=== PATIENT | female | born 1955 | race Caucasian/White ===

== ENCOUNTER 2016-10-10 14:28 | Inpatient (IN) ==
[2016-10-10] MEDS ORDERED: Naloxone 0.4 MG/ML INJ IVP PRN (17:44)
[2016-10-10] MEDS ORDERED: Albuterol 2.5 MG/3 ML NEBULIZER IH PRN (17:49)
[2016-10-10] MEDS ORDERED: 0.9 % Sodium Chloride 1,000 ML IVC ONE (17:52)
[2016-10-10] MEDS ORDERED: Potassium Chloride 40 MEQ, Lidocaine 1% 2 ML in D5% in Water 500 ML IVPB ONE (17:53)
[2016-10-10] MEDS ORDERED: Dextrose Gel 15 GM PO PRN ×2 (17:56)
[2016-10-10] MEDS ORDERED: *HR* Dextrose 50 % in Water (Syg) 50 ML SYRINGE IVP PRN (17:56)
[2016-10-10] MEDS ORDERED: D5% in Water 1,000 ML IV PRN (17:56)
--- NOTE | 2016-10-10 17:57 | Internal Med History&Physical ---
<Shannan Lamb M - Last Filed: 10/10/16 23:54> Date of Encounter: 10/10/16 Time of Encounter: 17:55 Assessment and Plan (1) Community acquired pneumonia Current visit: No Status: Acute Patient with complaints of pain in left shoulder when taking a deep breath, weakness and lethargy. Satting 88% on room air. CTA revealed left upper lobe pneumonia. WBC 25 Blood cultures drawn by Raven Cutler, await results Azithromycin and Ceftriaxone IVPB IV fluids 100mL/hr titrate oxygen to maintain O2 saturations > 92% duonebs QID albuterol nebulizer Q2 PRN (2) Type 2 diabetes mellitus Current visit: Yes Status: Acute diabetic diet check blood sugars ACHS Continue basal dose of insulin 35u levemir BID Sliding scale correction dose ACHS hypoglycemic protocol. 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 Discussed consequences of smoking and smoking cessation. Patient not ready to quit at this time. Nicotine patch ordered. (4) Hypokalemia Current visit: Yes Status: Acute Potassium of 3.3. 40mEq of potassium IVPB ordered recheck chemistry in the morning. (5) Dehydration Current visit: Yes Status: Acute Patient appears dry with dry mucous membranes. 1L fluid bolus ordered. IV fluids 0.9 at 100mL/hr. (6) DVT prophylaxis Current visit: Yes Status: Acute Internal Medicine - H&P: HPI Chief complaint: weakness, lethargic Admitted From: Emergency Dept Plans for Post Hospital Care: Home History of present illness: Ms. Sinclair is a 61 year old female with hypertension, hyperlipidemia, type 2 diabetes, fibromyalgia, peripheral vascular disease who is admitted in a transfer from [facility] emergency room with pneumonia. Patient reports that over the last several days she has had trouble controlling her blood sugar, and had weakness and lethargy. Yesterday she developed pain in her left shoulder when taking a deep breath which continued to today. She denies any cough, fever, chills, sweats. She denies any nausea, vomiting, diarrhea, abdominal pain. She denies any dizziness, lightheadedness, numbness or tingling outside of her baseline bilateral lower extremity diabetic neuropathy. She presented to her primary care provider this morning with these complaints and he sent her to the emergency room. Presentation to [facility] emergency room she was satting 88% on 2 L. Evaluation was significant for white blood cell count of 25, hypokalemia with potassium of 3.3, hyponatremia with sodium of 131. CTA of the chest was performed which showed a left upper lobe infiltrate consistent with pneumonia and several nodules. On exam, mucous membranes appear dry, she is alert and oriented, in no distress. Lungs are mostly clear to auscultation, with mild crackle in left superior. Past Med Surg Social Fam HX - Past Medical History Medical history: coronary artery disease, diabetes, fibromyalgia, hyperlipidemia , hypertension, peripheral artery disease Psychiatric history: no psych history - Past Surgical History Surgical History: hysterectomy, LE vascular intervention - Social History Smoking Status: Current every day smoker (1PPD) Packs per day: 1 Alcohol use: none Drug use: none - Family History Mother Living Status: Age at : 79 Cause of : heart failure Father Living Status: Age at : 82 Cause of : Cancer Internal Medicine - H&P: Meds Albuterol Sulfate [Ventolin Hfa] 2 puff IH QID PRN 10/10/16 [History] Aspirin [Lo-Dose Aspirin EC] 81 mg PO DAILY 10/10/16 [History] Atorvastatin [Lipitor] 40 mg PO HS 10/10/16 [History] Clopidogrel Bisulfate [Plavix] 75 mg PO DAILY 10/10/16 [History] Cyclobenzaprine HCl [Cyclobenzaprine HCl] 5 - 10 mg PO HS 10/10/16 [History] Gabapentin [Neurontin] 100 mg PO HS 10/10/16 [History] Insulin ASPART [Novolog Flexpen] 10 unit SQ TIDWM 10/10/16 [History] Insulin Glargine [Lantus] 35 unit SQ BID 10/10/16 [History] Lidocaine Patch [Lidoderm 5% patch] 1 each TP DAILY PRN 10/10/16 [History] Liraglutide [Victoza 2-Trey] 1.2 mg SQ DAILY 10/10/16 [History] Naproxen [Naprosyn] 500 mg PO BID PRN 10/10/16 [History] Nitroglycerin [Nitrostat] 0.4 mg SL Q5M PRN 10/10/16 [History] Oxycodone HCl/Acetaminophen [Percocet 10-325 mg Tablet] 1 each PO Q8H PRN [History] Quetiapine Fumarate [Seroquel] 100 mg PO HS 10/10/16 [History] Sertraline [Zoloft] 50 - 100 mg PO DAILY 10/10/16 [History] Allergies codeine Allergy (Verified 10/10/16 10:02) See Comments All Systems PM: A 10-system review of systems was performed and is negative for pertinent findings except as documented above in the HPI. - Constitutional Constitutional: fatigue, lethargy, weakness, no chills, no fever(s), no night sweats - EENT Eyes: no change in vision, no discharge, no pain, no photophobia Ears: no ear discharge, no ear pain, no tinnitus Nose, mouth and throat: no dysphagia, no nasal discharge, no neck pain, no sore throat - Cardiovascular Cardiovascular ROS IM: no chest pain, no diaphoresis, no dyspnea, no lightheadedness, no palpitations, no syncope - Respiratory Respiratory: pain on inspiration, no cough, no dyspnea, no wheezing, no excessive phlegm production - Gastrointestinal Gastrointestinal: constipation, no abdominal pain, no diarrhea, no hematemesis, no hematochezia, no melena, no nausea, no vomiting - Genitourinary Genitourinary: no change in urinary stream, no dysuria, no flank pain, no hematuria - Musculoskeletal Musculoskeletal ROS IM: no numbness, no tingling - Integumentary Integumentary IM: no rash, no unusual bruising - Neurological Neurological ROS: no confusion, no convulsions, no focal weakness, no numbness, no tingling, no tremor(s) - Hematologic/Lymphatic Hematologic/Lymphatic: no easy bruising - Constitutional Vitals: Temp Pulse Resp BP Pulse Ox 98.2 F 97 16 100/66 95 10/10/16 16:41 10/10/16 16:41 10/10/16 16:41 10/10/16 16:41 10/10/16 16:41 General appearance: Present: A&O X 3, no acute distress - Head Head exam: Present: atraumatic, normocephalic - Eye Eye exam: Present: PERRL, conjuntiva pink, sclera anicteric Pupils: Present: PERRL - Neck Neck exam general surgery: Present: supple, trachea midline. Absent: lymphadenopathy - Respiratory Respiratory exam: Present: rales (left upper lobe). Absent: accessory muscle use, rhonchi, wheezes - Cardiovascular Cardiovascular exam: Present: RRR, +S1, +S2. Absent: diastolic murmur, gallop, rubs, systolic murmur - GI/Abdominal GI/Abdominal exam: Present: normal bowel sounds, soft, no peritoneal signs. Absent: distended, tenderness - Extremities Exam Extremities exam: Present: warm, radial pulses palpable and symetrical. Absent : calf tenderness, cyanotic, pedal edema - Neurological Exam Neurological exam: Present: CN II-XII intact, oriented X3, no focal deficits. Absent: pronater drift, facial droop, speech deficit - Skin Skin exam: Present: dry, intact Internal Med - H&P Results - Labs Labs: Labs from [facility] ED: WBC 25 Hgb 11.0 Hct 30.5 PlT 295 NA 131 K 3.3 CL 96 Co2 21 BUN 18 Cr 0.87 Glu 100 <Robert Conklin - Last Filed: 10/13/16 13:31> Internal Medicine - H&P: HPI History of present illness: Ms. Sinclair is a 61 year old female All Systems PM: A 10-system review of systems was performed and is negative for pertinent findings except as documented above in the HPI. - Constitutional Vitals: Temp Pulse Resp BP Pulse Ox 98.2 F 105 16 143/77 98 10/13/16 11:01 10/13/16 11:01 10/13/16 11:01 10/13/16 11:01 10/13/16 11:01 Internal Med - H&P Results - Labs CBC & Chem 7: 10/13/16 06:30 10/13/16 06:30 Labs: Short CBC 10/13/16 Range/Units 06:30 WBC 9.3 (4.3-11.1) K/mcL Hgb 9.4 L (11.5-15.4) g/dL Hct 28.8 L (35.3-44.9) % Plt Count 313 (140-400) K/mcL Neutrophils # 5.0 (1.6-8.9) K/mcL BMP 10/13/16 06:30 Sodium 140 Potassium 3.8 Chloride 108 Carbon Dioxide 26 BUN 18 Creatinine 0.66 Glucose 100 H Calcium 8.0 L Liver Function 10/13/16 Range/Units 06:30 Total Bilirubin 0.4 (0.2-1.2) mg/dL AST 26 (5-34) Units/L ALT 14 (0-55) Units/L Alkaline Phosphatase 141 H (38-126) Units/L Albumin 1.8 L D (3.5-5.0) g/dL - Attending Attestation I examined this patient and my medical decision-making was reviewed with the Advanced Practice Nurse. I agree with the documented findings, disposition and treatment plan as described except to the extent set forth below. Pt sent from outside hospital for eval and treatment of PNA and sepsis. On exam NAD, heart RRR S1S2. Will treat her with Ceftriaxone and Azithromycin and f/u cultures.
[2016-10-10] MEDS: Insulin LISPRO 300 UNITS/3 ML VIAL SQ SCH ×2 (18:21→21:42)
[2016-10-10] MEDS: Nicotine 21 MG PATCH.TD24 TD SCH (18:23)
[2016-10-10] MEDS: Ipratropium/Albuterol Neb 3 ML IH SCH ×2 (19:01→23:55)
[2016-10-10] MEDS: 0.9 % Sodium Chloride 1,000 ML IVC SCH (19:45)
[2016-10-10 20:24] LABS: Hemoglobin A1C 9.5 %
[2016-10-10] MEDS: Insulin DETEMIR 100 UNIT/ML X5UNITS SQ SCH (21:42)
[2016-10-10] MEDS: *HR* OxyCODONE/APAP 10/325 TABLET PO PRN (21:42)
[2016-10-10] MEDS ORDERED: Nitroglycerin 0.4 MG TAB.SUBL SL PRN (23:41)
[2016-10-11] MEDS: Ipratropium/Albuterol Neb 3 ML IH SCH ×4 (05:04→22:59)
[2016-10-11] MEDS: *HR* Enoxaparin 40 MG/0.4 ML SYRINGE SQ SCH (05:26)
[2016-10-11] MEDS: *HR* OxyCODONE/APAP 10/325 TABLET PO PRN ×2 (05:30→23:18)
[2016-10-11 06:17] LABS: Hematocrit 29.2 % (35.3-44.9); Hemoglobin 9.7 g/dL (11.5-15.4); Mean Corpuscular HGB Conc 33.2 g/dL (31.6-35.5); Mean Corpuscular Hemoglobin 28.2 pg (28.0-33.3); Mean Corpuscular Volume 84.9 fL (83.0-100.0); Mean Platelet Volume 10.1 fL (9.4-12.4); Platelet Count 276 K/mcL (140-400); Red Blood Count 3.44 M/mcL (3.82-4.97); Red Cell Distribution Width 13.6 % (11.5-14.5)
--- NOTE | 2016-10-11 06:24 | Event Note ---
Date of Encounter: 10/11/16 Time of Encounter: 06:22 I was notified that blood culture is positive for Streptococcus pneumonia. Patient is on ceftriaxone and azithromycin. Normal need to change antibiotics and time. Await sensitivities. Day team to review.
[2016-10-11 06:30] LABS: BUN/Creatinine Ratio 22 (6-26); Blood Urea Nitrogen 17 mg/dL (7-20); Carbon Dioxide 22 mEq/L (19-29); Chloride 105 mEq/L (98-109); Glucose 235 mg/dL (70-99); Osmolality,Calculated 291 (280-300); Potassium 3.9 mEq/L (3.5-4.5); Sodium 136 mEq/L (136-145); eGFR For African Americans > 60 (> 60); eGFR For Non-African Americans > 60 (> 60)
[2016-10-11 07:17] LABS: Monocytes # 0.3 K/mcL (0.0-1.3); Neutrophils # 14.7 K/mcL (1.6-8.9); Platelet Estimate Normal (Normal)
[2016-10-11] MEDS: Nicotine 21 MG PATCH.TD24 TD SCH (07:59)
[2016-10-11] MEDS: Gabapentin 100 MG CAPSULE PO SCH (07:59)
[2016-10-11] MEDS: Aspirin Enteric Coated 81 MG Tablet PO SCH (07:59)
[2016-10-11] MEDS: Insulin DETEMIR 100 UNIT/ML X5UNITS SQ SCH ×2 (07:59→21:14)
[2016-10-11] MEDS: Insulin LISPRO 300 UNITS/3 ML VIAL SQ SCH ×6 (08:00→21:13)
[2016-10-11] MEDS: 0.9 % Sodium Chloride 1,000 ML IVC SCH (08:01)
[2016-10-11] MEDS: Azithromycin 500 MG in D5% in Water 250 ML IVPB SCH (08:01)
--- NOTE | 2016-10-11 09:52 | Internal Med Progress Note ---
<Santosh Wall - Last Filed: 10/11/16 09:49> Date of Encounter: 10/11/16 Time of Encounter: 09:50 - Assessment and plan (1) Community acquired pneumonia Current Visit: Yes Status: Acute Assessment and plan: 61-year-old female with a history of coronary artery disease, diabetes, fibromyalgia, hyperlipidemia, hypertension, peripheral artery disease, chronic smoker presents with complaints of left upper chest pain that worsens with cough and deep inspiration, lethargy and weakness. She was a transfer from [facility] where she presented with saturation 88% on 2 L oxygen. Blood cultures grew streptococcal pneumonia CTA showed left upper lobe consolidation most likely pneumonia White count improving from 25 down to 16 Patient will continue azithromycin and ceftriaxone CBC and BMP in the morning (2) CAD (coronary artery disease) Current Visit: Yes Status: Acute Assessment and plan: Patient has history of coronary artery disease and peripheral vascular disease. She denies any chest pain, leg cramps. We will continue her Plavix, aspirin, statin. Qualifiers: Coronary Disease-Associated Artery/Lesion type: [place] artery [place] vs. transplanted heart: [place] heart Associated angina: without angina Qualified Code(s): I25.10 - Atherosclerotic heart disease of [place] coronary artery without angina pectoris (3) Dehydration Current Visit: Yes Status: Resolved Assessment and plan: Secondary to hyperglycemia secondary to type 2 diabetes uncontrolled. Also secondary to decreased oral intake. Urinalysis showed urine specific gravity of 1.030. Patient receiving IV fluids. Hyponatremia and hypokalemia resolved. (4) Hypokalemia Current Visit: Yes Status: Resolved Assessment and plan: Patient presented with hypokalemia. This has resolved now. We will continue monitoring. (5) Smoker Current Visit: Yes Status: Chronic Assessment and plan: Patient has smoked for 45 years 1 pack per day. She knows benefits of quitting smoking. Patient had quit in the past for 13 months. She would like to try quitting again. Upon discharge will start patient on nicotine patch and gum. She can follow-up with her PCP for further assistance. (6) Type 2 diabetes mellitus Current Visit: Yes Status: Chronic Assessment and plan: Patient says for the past few days she has had trouble controlling her blood sugars. This is most likely secondary to pneumonia. Hemoglobin A1c is 9.5. [place] ER note says patient's blood sugars were in the 500s. She was lethargic Patient takes Victoza and insulin glargine and insulin support at home to control her diabetes. Currently she is on insulin Levemir 20 units twice a day. Continue insulin sliding scale. 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 - Subjective Interval history: 61-year-old female admitted for Streptococcus pneumonia community-acquired pneumonia. This morning patient states that her shortness of breath has improved. She continues to have left upper chest pain worsens with cough and deep inspiration. She denies productive cough, abdominal pain, palpitations, nausea, difficulty urinating. - Constitutional Vitals: Temp Pulse Resp BP Pulse Ox 98.1 F 89 13 105/65 96 10/11/16 06:42 10/11/16 06:42 10/11/16 06:42 10/11/16 06:42 10/11/16 08:12 General appearance: Present: A&O X 3, no acute distress, answers questions appropriately - Neck Neck exam general surgery: Present: supple, trachea midline. Absent: lymphadenopathy - Respiratory Respiratory exam: Present: CTAB, rales (Left upper lung field). Absent: accessory muscle use, rhonchi, wheezes - Cardiovascular Cardiovascular exam: Present: RRR, +S1, +S2. Absent: diastolic murmur, gallop, rubs, systolic murmur - GI/Abdominal GI/Abdominal exam: Present: normal bowel sounds, soft, no peritoneal signs. Absent: distended, tenderness - Extremities Exam Extremities exam: Present: warm, radial pulses palpable and symetrical. Absent : calf tenderness, cyanotic, pedal edema Internal Medicine: Result - Labs CBC & Chem 7: 10/11/16 05:40 10/11/16 05:40 Labs: Short CBC 10/11/16 Range/Units 05:40 WBC 16.0 H (4.3-11.1) K/mcL Hgb 9.7 L (11.5-15.4) g/dL Hct 29.2 L (35.3-44.9) % Plt Count 276 (140-400) K/mcL Neutrophils # 14.7 H (1.6-8.9) K/mcL [facility] 10/11/16 05:40 Sodium 136 Potassium 3.9 Chloride 105 Carbon Dioxide 22 BUN 17 Creatinine 0.78 Glucose 235 H Calcium 8.0 L Consult Discharge Plan - Plan Referrals: Chetan Cabrera MD [Primary Care Provider] - 10/22/16 1:00 pm (Please follow up as schedule.. with the SENIOR DYNAMICS CRM DEVELOPER Eneida) <Milton Duran T - Last Filed: 10/11/16 12:04> - Constitutional Vitals: Temp Pulse Resp BP Pulse Ox 98.4 F 92 16 109/66 97 10/11/16 10:34 10/11/16 10:34 10/11/16 11:03 10/11/16 10:34 10/11/16 11:03 Internal Medicine: Result - Labs CBC & Chem 7: 10/11/16 05:40 10/11/16 05:40 Labs: Short CBC 10/11/16 Range/Units 05:40 WBC 16.0 H (4.3-11.1) K/mcL Hgb 9.7 L (11.5-15.4) g/dL Hct 29.2 L (35.3-44.9) % Plt Count 276 (140-400) K/mcL Neutrophils # 14.7 H (1.6-8.9) K/mcL [facility] 10/11/16 05:40 Sodium 136 Potassium 3.9 Chloride 105 Carbon Dioxide 22 BUN 17 Creatinine 0.78 Glucose 235 H Calcium 8.0 L - Attending Attestation I examined this patient and my medical decision-making was reviewed with the LEVEL DESIGNER/PA/Advanced Practice Nurse/Resident Physician. I agree with the documented findings, disposition and treatment plan as described except to the extent set forth below. 61 Y/O F with PMH of DM, Former smoker, HTN, CAD, Fibromyalgia, PAD Patient is placed on observation for management of community acquired streptococcal pneumonia Seen at bedside, denies new complains, Afebrile, ambulatory, tolerating orally, not in any form of distress Labs and Imaging reviewed :leukocytosis has improved, Chest CT with Pulm nodules and MAE pneumonia. Blood culture with GPC, PCR Strep Continue IV antibiotics, adjust insulin, await final sensitivity, continue home meds, d/c IVF
[2016-10-12] MEDS: Ipratropium/Albuterol Neb 3 ML IH SCH ×4 (05:14→23:15)
[2016-10-12] MEDS: Insulin LISPRO 300 UNITS/3 ML VIAL SQ SCH ×7 (06:48→20:57)
[2016-10-12] MEDS: Insulin DETEMIR 100 UNIT/ML X5UNITS SQ SCH ×2 (06:48→21:07)
[2016-10-12 06:53] LABS: BUN/Creatinine Ratio 27 (6-26); Blood Urea Nitrogen 21 mg/dL (7-20); Calcium 7.9 mg/dL (8.6-10.8); Carbon Dioxide 24 mEq/L (19-29); Chloride 108 mEq/L (98-109); Glucose 50 mg/dL (70-99); Osmolality,Calculated 292 (280-300); Potassium 3.3 mEq/L (3.5-4.5); Sodium 141 mEq/L (136-145); eGFR For African Americans > 60 (> 60); eGFR For Non-African Americans > 60 (> 60)
[2016-10-12 07:04] LABS: Basophils % 0.2 %; Eosinophils % 0.2 %; Hemoglobin 9.2 g/dL (11.5-15.4); Immature Granulocytes % 1.2 % (0-4); Lymphocytes # 3.9 K/mcL (0.6-4.6); Lymphocytes % 29.3 %; Mean Corpuscular HGB Conc 32.9 g/dL (31.6-35.5); Mean Corpuscular Hemoglobin 28.1 pg (28.0-33.3); Mean Corpuscular Volume 85.6 fL (83.0-100.0); Mean Platelet Volume 9.4 fL (9.4-12.4); Monocytes # 0.8 K/mcL (0.0-1.3); Monocytes % 6.2 %; Neutrophils # 8.4 K/mcL (1.6-8.9); Platelet Count 311 K/mcL (140-400); Red Blood Count 3.27 M/mcL (3.82-4.97); Segmented Neutrophils % 62.9 %
[2016-10-12] MEDS: Gabapentin 100 MG CAPSULE PO SCH (07:57)
[2016-10-12] MEDS: Aspirin Enteric Coated 81 MG Tablet PO SCH (07:57)
[2016-10-12] MEDS: *HR* Enoxaparin 40 MG/0.4 ML SYRINGE SQ SCH (07:57)
[2016-10-12] MEDS: Nicotine 21 MG PATCH.TD24 TD SCH (07:57)
[2016-10-12] MEDS: Azithromycin 500 MG in D5% in Water 250 ML IVPB SCH (09:01)
[2016-10-12] MEDS: *HR* OxyCODONE/APAP 10/325 TABLET PO PRN ×2 (13:31→21:06)
--- NOTE | 2016-10-12 16:49 | Internal Med Progress Note ---
Date of Encounter: 10/12/16 Time of Encounter: 16:44 - Assessment and plan (1) Community acquired pneumonia Current Visit: Yes Status: Acute Assessment and plan: 61-year-old female with a history of coronary artery disease, diabetes, fibromyalgia, hyperlipidemia, hypertension, peripheral artery disease, chronic smoker presents with complaints of left upper chest pain that worsens with cough and deep inspiration, lethargy and weakness. She was a transfer from [facility] where she presented with saturation 88% on 2 L oxygen. Blood cultures grew streptococcal pneumonia CTA showed left upper lobe consolidation most likely pneumonia White count improving from 25 down to 16 Patient will continue azithromycin and ceftriaxone CBC and BMP in the morning 10/12/2016 Strep Pneumo bacteremia source : Left upper lobe PNA Day 3 Ceftraxone and Azithromycin plan will d/c Azithromycin tomorrow cont ceftriaxone (2) CAD (coronary artery disease) Current Visit: Yes Status: Acute Assessment and plan: Patient has history of coronary artery disease and peripheral vascular disease. She denies any chest pain, leg cramps. We will continue her Plavix, aspirin, statin. 10/12/2016 no chest pain or SOB stable CAD Qualifiers: Coronary Disease-Associated Artery/Lesion type: [place] artery [place] vs. transplanted heart: [place] heart Associated angina: without angina Qualified Code(s): I25.10 - Atherosclerotic heart disease of [place] coronary artery without angina pectoris (3) Hypokalemia Current Visit: Yes Status: Resolved Assessment and plan: Patient presented with hypokalemia. This has resolved now. We will continue monitoring. 10/12/2016 K : 3.3 will replace K and will check Mg (4) Type 2 diabetes mellitus Current Visit: Yes Status: Chronic Assessment and plan: Patient says for the past few days she has had trouble controlling her blood sugars. This is most likely secondary to pneumonia. Hemoglobin A1c is 9.5. [place] ER note says patient's blood sugars were in the 500s. She was lethargic Patient takes Victoza and insulin glargine and insulin support at home to control her diabetes. Currently she is on insulin Levemir 20 units twice a day. Continue insulin sliding scale. Continue diabetic diet 10/12/2016 acceptable limits Qualifiers: Diabetes mellitus complication status: with neurologic complications Diabetes mellitus complication detail: with polyneuropathy Diabetes mellitus terminal operator insulin use: with terminal operator use Qualified Code(s): E11.42 - Type 2 diabetes mellitus with diabetic polyneuropathy; Z79.4 - medical terminologist (current) use of insulin (5) DVT prophylaxis Current Visit: Yes Status: Acute Assessment and plan: Continue Lovenox. - Subjective Interval history: seen and examined no new complaints eating well has occasional cough and SOB - Constitutional Vitals: Temp Pulse Resp BP Pulse Ox 97.8 F 104 16 136/72 96 10/12/16 10:38 10/12/16 10:38 10/12/16 10:47 10/12/16 10:38 10/12/16 11:30 General appearance: Present: A&O X 3, no acute distress, answers questions appropriately - Head Head exam: Present: atraumatic, normocephalic - Eye Eye exam: Present: PERRL, conjuntiva pink, sclera anicteric Pupils: Present: PERRL - Neck Neck exam general surgery: Present: supple, trachea midline. Absent: lymphadenopathy - Respiratory Respiratory exam: Present: CTAB. Absent: accessory muscle use, rales, rhonchi, wheezes - Cardiovascular Cardiovascular exam: Present: RRR, +S1, +S2. Absent: diastolic murmur, gallop, rubs, systolic murmur - GI/Abdominal GI/Abdominal exam: Present: normal bowel sounds, soft, no peritoneal signs. Absent: distended, tenderness - Extremities Exam Extremities exam: Present: warm, radial pulses palpable and symetrical. Absent : calf tenderness, cyanotic, pedal edema - Neurological Exam Neurological exam: Present: CN II-XII intact, oriented X3, no focal deficits. Absent: pronater drift, facial droop, speech deficit - Skin Skin exam: Present: dry, intact Internal Medicine: Result - Labs CBC & Chem 7: 10/12/16 05:28 10/12/16 05:28 Labs: Short CBC 10/12/16 Range/Units 05:28 WBC 13.3 H (4.3-11.1) K/mcL Hgb 9.2 L (11.5-15.4) g/dL Hct 28.0 L (35.3-44.9) % Plt Count 311 (140-400) K/mcL Neutrophils # 8.4 (1.6-8.9) K/mcL BMP 10/12/16 05:28 Sodium 141 Potassium 3.3 L Chloride 108 Carbon Dioxide 24 BUN 21 H Creatinine 0.78 Glucose 50 L Calcium 7.9 L Consult Discharge Plan - Plan Referrals: Chetan Cabrera MD [Primary Care Provider] - 10/22/16 1:00 pm (Please follow up as schedule.. with the GRAIN MILL WORKER Eneida)
[2016-10-12] MEDS ORDERED: Potassium Chloride Elixir 20 MEQ/15 ML UDC PO ONE (16:51)
[2016-10-13] MEDS: Ipratropium/Albuterol Neb 3 ML IH SCH ×4 (04:39→22:14)
[2016-10-13] MEDS: *HR* Enoxaparin 40 MG/0.4 ML SYRINGE SQ SCH (06:22)
[2016-10-13 07:00] LABS: Alanine Aminotransferase 14 Units/L (0-55); Albumin/Globulin Ratio 0.4 (1.1-2.2); Alkaline Phosphatase 141 Units/L (38-126); Aspartate Amino Transferase 26 Units/L (5-34); BUN/Creatinine Ratio 27 (6-26); Bilirubin,Total 0.4 mg/dL (0.2-1.2); Blood Urea Nitrogen 18 mg/dL (7-20); Carbon Dioxide 26 mEq/L (19-29); Chloride 108 mEq/L (98-109); Globulin 4.7 g/dL (2.4-3.5); Glucose 100 mg/dL (70-99); Magnesium 1.3 mg/dL (1.6-2.6); Osmolality,Calculated 292 (280-300); Potassium 3.8 mEq/L (3.5-4.5); Sodium 140 mEq/L (136-145); Total Protein 6.5 g/dL (6.0-8.3); eGFR For African Americans > 60 (> 60); eGFR For Non-African Americans > 60 (> 60)
[2016-10-13 07:01] LABS: Albumin 1.8 g/dL (3.5-5.0)
[2016-10-13 07:04] LABS: Basophils % 0.3 %; Eosinophils # 0.1 K/mcL (0.0-0.6); Eosinophils % 1.2 %; Hematocrit 28.8 % (35.3-44.9); Hemoglobin 9.4 g/dL (11.5-15.4); Immature Granulocytes % 1.6 % (0-4); Lymphocytes # 3.2 K/mcL (0.6-4.6); Lymphocytes % 34.6 %; Mean Corpuscular HGB Conc 32.6 g/dL (31.6-35.5); Mean Corpuscular Hemoglobin 28.7 pg (28.0-33.3); Mean Corpuscular Volume 88.1 fL (83.0-100.0); Mean Platelet Volume 8.9 fL (9.4-12.4); Monocytes # 0.8 K/mcL (0.0-1.3); Monocytes % 8.2 %; Nucleated Red Blood Cells 0.2 /100 WBC (0); Platelet Count 313 K/mcL (140-400); Red Blood Count 3.27 M/mcL (3.82-4.97); Red Cell Distribution Width 14.4 % (11.5-14.5); Segmented Neutrophils % 54.1 %
[2016-10-13] MEDS: Insulin DETEMIR 100 UNIT/ML X5UNITS SQ SCH ×2 (08:10→20:56)
[2016-10-13] MEDS: Insulin LISPRO 300 UNITS/3 ML VIAL SQ SCH ×7 (08:10→20:58)
[2016-10-13] MEDS: Gabapentin 100 MG CAPSULE PO SCH (08:48)
[2016-10-13] MEDS: Aspirin Enteric Coated 81 MG Tablet PO SCH (08:48)
[2016-10-13] MEDS: Nicotine 21 MG PATCH.TD24 TD SCH (08:48)
[2016-10-13] MEDS: Azithromycin 500 MG in D5% in Water 250 ML IVPB SCH (09:50)
--- NOTE | 2016-10-13 13:37 | Internal Med Progress Note ---
Date of Encounter: 10/13/16 Time of Encounter: 13:35 - Assessment and plan (1) Community acquired pneumonia Current Visit: Yes Status: Acute Assessment and plan: 61-year-old female with a history of coronary artery disease, diabetes, fibromyalgia, hyperlipidemia, hypertension, peripheral artery disease, chronic smoker presents with complaints of left upper chest pain that worsens with cough and deep inspiration, lethargy and weakness. She was a transfer from [facility] where she presented with saturation 88% on 2 L oxygen. Blood cultures grew streptococcal pneumonia CTA showed left upper lobe consolidation most likely pneumonia White count improving from 25 down to 16 Patient will continue azithromycin and ceftriaxone CBC and BMP in the morning 10/12/2016 Strep Pneumo bacteremia source : Left upper lobe PNA Day 3 Ceftraxone and Azithromycin plan will d/c Azithromycin tomorrow cont ceftriaxone 10/13/2016 Day 4 Ceftriaxone Stre Pneumo Bacteremia. Source: left upper lobe of lung plan will continue ceftriaxone will get ECHO replace Mg (2) CAD (coronary artery disease) Current Visit: Yes Status: Acute Assessment and plan: Patient has history of coronary artery disease and peripheral vascular disease. She denies any chest pain, leg cramps. We will continue her Plavix, aspirin, statin. 10/12/2016 no chest pain or SOB stable CAD Qualifiers: Coronary Disease-Associated Artery/Lesion type: [place] artery [place] vs. transplanted heart: [place] heart Associated angina: without angina Qualified Code(s): I25.10 - Atherosclerotic heart disease of [place] coronary artery without angina pectoris (3) Hypokalemia Current Visit: Yes Status: Resolved Assessment and plan: Patient presented with hypokalemia. This has resolved now. We will continue monitoring. 10/12/2016 K : 3.3 will replace K and will check Mg (4) Type 2 diabetes mellitus Current Visit: Yes Status: Chronic Assessment and plan: Patient says for the past few days she has had trouble controlling her blood sugars. This is most likely secondary to pneumonia. Hemoglobin A1c is 9.5. [place] [facility] note says patient's blood sugars were in the 500s. She was lethargic Patient takes Victoza and insulin glargine and insulin support at home to control her diabetes. Currently she is on insulin Levemir 20 units twice a day. Continue insulin sliding scale. 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 - Subjective Interval history: seen and examined no new complaints eating well has occasional cough and SOB 10/13/2016 occasional cough and SOB eating well and denies nausea, SOB, vomiting. - Constitutional Vitals: Temp Pulse Resp BP Pulse Ox 98.2 F 105 16 143/77 98 10/13/16 11:01 10/13/16 11:01 10/13/16 11:01 10/13/16 11:01 10/13/16 11:01 General appearance: Present: A&O X 3, no acute distress, answers questions appropriately - Head Head exam: Present: atraumatic, normocephalic - Eye Eye exam: Present: PERRL, conjuntiva pink, sclera anicteric Pupils: Present: PERRL - Neck Neck exam general surgery: Present: supple, trachea midline. Absent: lymphadenopathy - Respiratory Respiratory exam: Present: CTAB. Absent: accessory muscle use, rales, rhonchi, wheezes - Cardiovascular Cardiovascular exam: Present: RRR, +S1, +S2. Absent: diastolic murmur, gallop, rubs, systolic murmur - GI/Abdominal GI/Abdominal exam: Present: normal bowel sounds, soft, no peritoneal signs. Absent: distended, tenderness - Extremities Exam Extremities exam: Present: warm, radial pulses palpable and symetrical. Absent : calf tenderness, cyanotic, pedal edema - Neurological Exam Neurological exam: Present: CN II-XII intact, oriented X3, no focal deficits. Absent: pronater drift, facial droop, speech deficit - Skin Skin exam: Present: dry, intact Internal Medicine: Result - Labs CBC & Chem 7: 10/13/16 06:30 10/13/16 06:30 Labs: Short CBC 10/13/16 Range/Units 06:30 WBC 9.3 (4.3-11.1) K/mcL Hgb 9.4 L (11.5-15.4) g/dL Hct 28.8 L (35.3-44.9) % Plt Count 313 (140-400) K/mcL Neutrophils # 5.0 (1.6-8.9) K/mcL BMP 10/13/16 06:30 Sodium 140 Potassium 3.8 Chloride 108 Carbon Dioxide 26 BUN 18 Creatinine 0.66 Glucose 100 H Calcium 8.0 L Liver Function 10/13/16 Range/Units 06:30 Total Bilirubin 0.4 (0.2-1.2) mg/dL AST 26 (5-34) Units/L ALT 14 (0-55) Units/L Alkaline Phosphatase 141 H (38-126) Units/L Albumin 1.8 L D (3.5-5.0) g/dL Consult Discharge Plan - Plan Referrals: Chetan Cabrera MD [Primary Care Provider] - 10/22/16 1:00 pm (Please follow up as schedule.. with the [employer] [facility])
[2016-10-13] MEDS ORDERED: Magnesium Sulfate 2 GM in D5% in Water 100 ML IVPB ONE (13:41)
[2016-10-13] MEDS: *HR* OxyCODONE/APAP 10/325 TABLET PO PRN (20:55)
[2016-10-14] MEDS: Ipratropium/Albuterol Neb 3 ML IH SCH ×4 (04:16→22:54)
[2016-10-14 05:59] LABS: Basophils % 0.4 %; Eosinophils # 0.2 K/mcL (0.0-0.6); Eosinophils % 2.3 %; Hematocrit 30.4 % (35.3-44.9); Immature Granulocytes % 1.7 % (0-4); Immature Platelets 1.2 % (1.1-6.1); Lymphocytes # 3.5 K/mcL (0.6-4.6); Lymphocytes % 35.9 %; Mean Corpuscular HGB Conc 32.9 g/dL (31.6-35.5); Mean Corpuscular Hemoglobin 28.7 pg (28.0-33.3); Mean Corpuscular Volume 87.4 fL (83.0-100.0); Mean Platelet Volume 8.8 fL (9.4-12.4); Monocytes # 0.8 K/mcL (0.0-1.3); Monocytes % 7.7 %; Neutrophils # 5.1 K/mcL (1.6-8.9); Platelet Count 375 K/mcL (140-400); Red Blood Count 3.48 M/mcL (3.82-4.97); Red Cell Distribution Width 14.2 % (11.5-14.5)
[2016-10-14 06:13] LABS: Alanine Aminotransferase 12 Units/L (0-55); Albumin/Globulin Ratio 0.4 (1.1-2.2); Alkaline Phosphatase 133 Units/L (38-126); Aspartate Amino Transferase 17 Units/L (5-34); BUN/Creatinine Ratio 17 (6-26); Bilirubin,Total 0.6 mg/dL (0.2-1.2); Blood Urea Nitrogen 13 mg/dL (7-20); Calcium 7.9 mg/dL (8.6-10.8); Carbon Dioxide 29 mEq/L (19-29); Chloride 104 mEq/L (98-109); Globulin 4.6 g/dL (2.4-3.5); Glucose 256 mg/dL (70-99); Magnesium 1.4 mg/dL (1.6-2.6); Osmolality,Calculated 293 (280-300); Potassium 4.2 mEq/L (3.5-4.5); Sodium 137 mEq/L (136-145); Total Protein 6.5 g/dL (6.0-8.3); eGFR For African Americans > 60 (> 60); eGFR For Non-African Americans > 60 (> 60)
[2016-10-14 06:14] LABS: Albumin 1.9 g/dL (3.5-5.0)
[2016-10-14] MEDS: Gabapentin 100 MG CAPSULE PO SCH (08:39)
[2016-10-14] MEDS: Nicotine 21 MG PATCH.TD24 TD SCH (08:39)
[2016-10-14] MEDS: Aspirin Enteric Coated 81 MG Tablet PO SCH (08:39)
[2016-10-14] MEDS: *HR* Enoxaparin 40 MG/0.4 ML SYRINGE SQ SCH (08:43)
[2016-10-14] MEDS: Insulin LISPRO 300 UNITS/3 ML VIAL SQ SCH ×6 (08:44→16:18)
[2016-10-14] MEDS: Insulin DETEMIR 100 UNIT/ML X5UNITS SQ SCH ×2 (08:55→22:10)
[2016-10-14] MEDS ORDERED: Perflutren Lipid Microsphere 1.3 ML in 0.9 % Sodium Chloride 8.7 ML IVP ONE (10:00)
[2016-10-14] MEDS ORDERED: Magnesium Sulfate 2 GM in D5% in Water 100 ML IVPB ONE (11:30)
--- NOTE | 2016-10-14 13:18 | ECHO - Doppler Report ---
Echo with Imaging Enhancement Agent Name: Gertrudis Sinclair Date of Study: 10/14/2016 Date: 1955 Ht: 65.0 in Medical Record#: [id number] Age: 61 Wt: 180.0 lb Gender: Female BSA: 1.89 Order #: [id number] Location: [facility] Room #: 2A14 Reading Physician: Nehemiah Rivas DO, ROCHELLE, BHARATHI KOTHARI Video Games Mechanic: Pee Fernandez RDCS Ordering Physician: Liban Tony MD Primary Physician: Chetan Cabrera MD Indications: Evaluate for endocarditis, Shortness of breath Impressions: LVEF 35%. Normal LV chamber size and wall thickness. Global left ventricular systolic dysfunction. Mild left ventricular diastolic dysfunction. Normal right ventricular structure and function. Mild mitral regurgitation. Unable to estimate RVSP due to lack of TR jet. No obvious evidence of endocarditis on this study. Repeat or consider EVE as clinically indicated. Left Ventricular Wall Motion: Rest Echo Findings The apex, apical inferior, mid inferior, basal inferior, apical anterior, mid anterior, basal anterior, apical septal, mid inferior septal, basal inferior septal, apical lateral, mid anterior lateral, basal anterior lateral, mid anterior septal, mid inferior lateral, basal anterior septal and basal inferior lateral merchant were hypokinetic. Findings: Study Quality * Technically adequate exam. ECG Findings * Normal sinus rhythm. Left Ventricle * LVEF 35%. * Normal LV chamber size and wall thickness. * Global left ventricular systolic dysfunction. * Mild left ventricular diastolic dysfunction. Right Ventricle * Normal right ventricular structure and function. Left Atrium * Mildly dilated left atrium. Right Atrium * Normal right atrial size. Interatrial Septum * Interatrial septum not well evaluated. Aortic Valve * Trileaflet aortic valve. * Calcified area between the non and left coronary cusps. * No aortic regurgitation. * No aortic stenosis. Mitral Valve * Normal mitral valve structure. * Mild mitral regurgitation. * No mitral stenosis. Tricuspid Valve * Normal tricuspid valve structure and function. * No tricuspid regurgitation. * Unable to estimate RVSP due to lack of TR jet. Pulmonic Valve * Pulmonic valve not well visualized. * No pulmonic regurgitation. Aorta * Normally sized aortic root. Pericardium * The pericardium appears normal. IVC * Normal IVC dimensions and inspiratory collapse. Pulmonary Artery * Normal visualized portions of the main pulmonary artery. History Diabetes Hypercholesteremia History of Smoking Years 45 Packs 1 Family History of CAD Contrast: Definity 1.3 ml in 8.7 ml of saline 2 ml. Measurements: BP: 147/ 80 2D Normal Values RVIDd: 2.73 cm <2.7 cm IVSd: 1.06 cm 0.6 - 1.0 cm LVIDd: 5.40 cm 3.7 - 5.6 cm LVPWd: 1.06 cm 0.6 - 1.1 cm LVIDs: 4.36 cm 1.5 - 3.6 cm AO: 2.70 cm < 4.0 cm LA: 3.70 cm 2.0 - 4.0cm %FS: 19.30 cm >25 % LA volume: 39 Mitral Valve Peak E:1.00 m/sec Peak A:1.26 m/sec E/A Ratio:0.8 Peak E' Lat Frank:8.59 cm/s Peak E' Med Frank:8.59 cm/s E/E' Lat Ratio:11.6 E/E' Med Ratio:11.6 Updated by Nehemiah Rivas DO, FACXavi, BHARATHI KOTHARI on 10/14/2016 1:12:09 PM electronically signed on 10/14/2016 1:14:38 PM with status of Final Wall Motion [place]: 1=Normal, 2=Hypokinesis, 3=Akinesis, 4=Dyskinesis, 5=Aneurysmal, 6=Hyperkinetic, X=Not Visualized (Blank)=Missing
--- NOTE | 2016-10-14 13:45 | Internal Med Progress Note ---
Date of Encounter: 10/14/16 Time of Encounter: 13:41 - Assessment and plan (1) Community acquired pneumonia Current Visit: Yes Status: Acute Assessment and plan: 61-year-old female with a history of coronary artery disease, diabetes, fibromyalgia, hyperlipidemia, hypertension, peripheral artery disease, chronic smoker presents with complaints of left upper chest pain that worsens with cough and deep inspiration, lethargy and weakness. She was a transfer from [facility] where she presented with saturation 88% on 2 L oxygen. Blood cultures grew streptococcal pneumonia CTA showed left upper lobe consolidation most likely pneumonia White count improving from 25 down to 16 Patient will continue azithromycin and ceftriaxone CBC and BMP in the morning 10/12/2016 Strep Pneumo bacteremia source : Left upper lobe PNA Day 3 Ceftraxone and Azithromycin plan will d/c Azithromycin tomorrow cont ceftriaxone 10/13/2016 Day 4 Ceftriaxone Stre Pneumo Bacteremia. Source: left upper lobe of lung plan will continue ceftriaxone will get ECHO replace Mg 10/14/2016 Day 5 Ceftriaxone Strep Pneumo Bacteremia. Source: left upper lobe of lung plan will continue ceftriaxone ( total of 7 days) ECHO pending replace Mg ( this morning 1.4 after yesterday's replacement) (2) CAD (coronary artery disease) Current Visit: Yes Status: Acute Assessment and plan: Patient has history of coronary artery disease and peripheral vascular disease. She denies any chest pain, leg cramps. We will continue her Plavix, aspirin, statin. 10/12/2016 no chest pain or SOB stable CAD Qualifiers: Coronary Disease-Associated Artery/Lesion type: [place] artery [place] vs. transplanted heart: [place] heart Associated angina: without angina Qualified Code(s): I25.10 - Atherosclerotic heart disease of [place] coronary artery without angina pectoris (3) Hypokalemia Current Visit: Yes Status: Resolved Assessment and plan: Patient presented with hypokalemia. This has resolved now. We will continue monitoring. 10/12/2016 K : 3.3 will replace K and will check Mg (4) Type 2 diabetes mellitus Current Visit: Yes Status: Chronic Assessment and plan: Patient says for the past few days she has had trouble controlling her blood sugars. This is most likely secondary to pneumonia. Hemoglobin A1c is 9.5. [place] ER note says patient's blood sugars were in the 500s. She was lethargic Patient takes Victoza and insulin glargine and insulin support at home to control her diabetes. Currently she is on insulin Levemir 20 units twice a day. Continue insulin sliding scale. 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 - Subjective Interval history: seen and examined no new complaints eating well has occasional cough and SOB 10/13/2016 occasional cough and SOB eating well and denies nausea, SOB, vomiting. 10/14/2016 has still cough and occasional chills. denies SOB eating well and ambulating in room. Pending ECHO - Constitutional Vitals: Temp Pulse Resp BP Pulse Ox 98 F 103 17 151/80 100 10/14/16 11:38 10/14/16 11:38 10/14/16 11:38 10/14/16 11:38 10/14/16 11:38 General appearance: Present: A&O X 3, no acute distress, answers questions appropriately - Head Head exam: Present: atraumatic, normocephalic - Eye Eye exam: Present: PERRL, conjuntiva pink, sclera anicteric Pupils: Present: PERRL - Neck Neck exam general surgery: Present: supple, trachea midline. Absent: lymphadenopathy - Respiratory Respiratory exam: Present: CTAB. Absent: accessory muscle use, rales, rhonchi, wheezes - Cardiovascular Cardiovascular exam: Present: RRR, +S1, +S2. Absent: diastolic murmur, gallop, rubs, systolic murmur - GI/Abdominal GI/Abdominal exam: Present: normal bowel sounds, soft, no peritoneal signs. Absent: distended, tenderness - Extremities Exam Extremities exam: Present: warm, radial pulses palpable and symetrical. Absent : calf tenderness, cyanotic, pedal edema - Neurological Exam Neurological exam: Present: CN II-XII intact, oriented X3, no focal deficits. Absent: pronater drift, facial droop, speech deficit - Skin Skin exam: Present: dry, intact Internal Medicine: Result - Labs CBC & Chem 7: 10/14/16 05:40 10/14/16 05:40 Labs: Short CBC 10/14/16 Range/Units 05:40 WBC 9.8 (4.3-11.1) K/mcL Hgb 10.0 L (11.5-15.4) g/dL Hct 30.4 L (35.3-44.9) % Plt Count 375 (140-400) K/mcL Neutrophils # 5.1 (1.6-8.9) K/mcL BMP 10/14/16 05:40 Sodium 137 Potassium 4.2 Chloride 104 Carbon Dioxide 29 BUN 13 Creatinine 0.75 Glucose 256 H Calcium 7.9 L Liver Function 10/14/16 Range/Units 05:40 Total Bilirubin 0.6 (0.2-1.2) mg/dL AST 17 (5-34) Units/L ALT 12 (0-55) Units/L Alkaline Phosphatase 133 H (38-126) Units/L Albumin 1.9 L (3.5-5.0) g/dL Consult Discharge Plan - Plan Referrals: Chetan Cabrera MD [Primary Care Provider] - 10/22/16 1:00 pm (Please follow up as schedule.. with the ROSIE Monique)
[2016-10-14] MEDS: *HR* OxyCODONE/APAP 10/325 TABLET PO PRN (16:21)
[2016-10-15] MEDS: Ipratropium/Albuterol Neb 3 ML IH SCH ×4 (04:40→22:50)
[2016-10-15] MEDS: Insulin LISPRO 300 UNITS/3 ML VIAL SQ SCH ×8 (04:42→21:02)
[2016-10-15 06:46] LABS: Basophils # 0.1 K/mcL (0.0-0.2); Basophils % 0.4 %; Eosinophils # 0.3 K/mcL (0.0-0.6); Eosinophils % 2.3 %; Hemoglobin 11.3 g/dL (11.5-15.4); Immature Granulocytes % 1.6 % (0-4); Lymphocytes # 3.5 K/mcL (0.6-4.6); Lymphocytes % 28.9 %; Mean Corpuscular HGB Conc 32.3 g/dL (31.6-35.5); Mean Corpuscular Hemoglobin 27.8 pg (28.0-33.3); Mean Platelet Volume 8.7 fL (9.4-12.4); Monocytes # 0.8 K/mcL (0.0-1.3); Monocytes % 6.9 %; Neutrophils # 7.2 K/mcL (1.6-8.9); Platelet Count 395 K/mcL (140-400); Red Blood Count 4.07 M/mcL (3.82-4.97); Segmented Neutrophils % 59.9 %
[2016-10-15 07:05] LABS: Alanine Aminotransferase 13 Units/L (0-55); Albumin 2.1 g/dL (3.5-5.0); Albumin/Globulin Ratio 0.4 (1.1-2.2); Alkaline Phosphatase 143 Units/L (38-126); Aspartate Amino Transferase 17 Units/L (5-34); BUN/Creatinine Ratio 17 (6-26); Bilirubin,Total 0.7 mg/dL (0.2-1.2); Blood Urea Nitrogen 13 mg/dL (7-20); Calcium 8.5 mg/dL (8.6-10.8); Carbon Dioxide 26 mEq/L (19-29); Chloride 102 mEq/L (98-109); Globulin 5.4 g/dL (2.4-3.5); Glucose 183 mg/dL (70-99); Osmolality,Calculated 289 (280-300); Potassium 4.1 mEq/L (3.5-4.5); Sodium 137 mEq/L (136-145); Total Protein 7.5 g/dL (6.0-8.3); eGFR For African Americans > 60 (> 60); eGFR For Non-African Americans > 60 (> 60)
[2016-10-15] MEDS: *HR* Enoxaparin 40 MG/0.4 ML SYRINGE SQ SCH (07:50)
[2016-10-15] MEDS: Gabapentin 100 MG CAPSULE PO SCH (07:50)
[2016-10-15] MEDS: Nicotine 21 MG PATCH.TD24 TD SCH (07:50)
[2016-10-15] MEDS: Insulin DETEMIR 100 UNIT/ML X5UNITS SQ SCH ×2 (07:51→21:03)
[2016-10-15] MEDS: Aspirin Enteric Coated 81 MG Tablet PO SCH (07:51)
[2016-10-15 09:01] LABS: Magnesium 1.6 mg/dL (1.6-2.6)
--- NOTE | 2016-10-15 10:14 | Internal Med Progress Note ---
<Rojas Serrano - Last Filed: 10/15/16 17:27> Date of Encounter: 10/15/16 Time of Encounter: 10:14 - Assessment and plan (1) Community acquired pneumonia Current Visit: Yes Status: Acute Assessment and plan: Admitted with CAP and bacteremia. Blood culture Gram + bacteremia suseptable to Ceftriaxone. Patient improving clinically. Plan: - Complete a total of 7 days IV Ceftriaxone (day5/7) - am labs. (2) Gram-positive bacteremia Current Visit: Yes Status: Acute Assessment and plan: Blood cultures positive for Strep pneumonia. Patient labs improved. afebrile and clinically improved. -Complete course of Ceftriaxone IV - Repeat blood cultures drawn with final results pending. (3) Systolic heart failure Current Visit: Yes Status: Acute Assessment and plan: Patient underwent echocardiogram to evaluate for valvular vegetation and was found to have a EF of 35% with global hypokinesis. She denies hx of cardiac disease or heart failure. Risk factors: HTN, DM type II-uncontrolled, HLD, PAD, CAD MARIA ELENA score of 3 Plan: -Cardiology consulted and have seen patient, medical management currently since patient has Gram + bacteremia. Follow up with cardiology. - Maximize medical therapy: Continue ASA, Plavix, ASA, Statin, Beta-kylie. Qualifiers: Qualified Code(s): I50.20 - Unspecified systolic (congestive) heart failure (4) CAD (coronary artery disease) Current Visit: Yes Status: Acute Assessment and plan: Patient has history of coronary artery disease and peripheral vascular disease. She denies any chest pain, leg cramps. Plan: - Continue ASA, Plavix, ASA, Statin, beta-kylie Qualifiers: Coronary Disease-Associated Artery/Lesion type: [place] artery [place] vs. transplanted heart: [place] heart Associated angina: without angina Qualified Code(s): I25.10 - Atherosclerotic heart disease of [place] coronary artery without angina pectoris (5) Type 2 diabetes mellitus Current Visit: Yes Status: Chronic Assessment and plan: Slightly hyperglycemic today. Hemoglobin A1c is 9.5. Patient takes Victoza and insulin glargine and insulin support at home to control her diabetes. Plan: Continue Levemir 20 units twice a day. Continue insulin sliding scale. 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 - Subjective Interval history: Ms. Sinclair has been seen and evaluated at patient bedside this am. She says she feels well enough to go home today. She denies any discomforts or shortness of breath. She denies productive coughing. She denies any history of heart attacks , [place], chest pain with exertion or hx of heart failure. She says she had a cardiac cath several years ago but denies any stents at that time. - Constitutional Vitals: Temp Pulse Resp BP Pulse Ox 98.4 F 101 15 111/73 98 10/15/16 07:32 10/15/16 07:32 10/15/16 07:32 10/15/16 07:32 10/15/16 07:32 General appearance: Present: A&O X 3, no acute distress, answers questions appropriately - Head Head exam: Present: atraumatic, normocephalic - Eye Eye exam: Present: PERRL, conjuntiva pink, sclera anicteric Pupils: Present: PERRL - Neck Neck exam general surgery: Present: supple, trachea midline. Absent: lymphadenopathy - Respiratory Respiratory exam: Present: CTAB. Absent: accessory muscle use, rales, rhonchi, wheezes - Cardiovascular Cardiovascular exam: Present: RRR, +S1, +S2. Absent: diastolic murmur, gallop, rubs, systolic murmur - GI/Abdominal GI/Abdominal exam: Present: normal bowel sounds, soft, no peritoneal signs. Absent: distended, tenderness - Extremities Exam Extremities exam: Present: warm, radial pulses palpable and symetrical. Absent : calf tenderness, cyanotic, pedal edema - Neurological Exam Neurological exam: Present: alert, oriented X3, no focal deficits. Absent: pronater drift, facial droop, speech deficit - Psychiatric Psychiatric exam: Present: normal affect, normal mood Internal Medicine: Result - Labs CBC & Chem 7: 10/15/16 05:42 10/15/16 05:42 Labs: Short CBC 10/15/16 Range/Units 05:42 WBC 12.0 H (4.3-11.1) K/mcL Hgb 11.3 L (11.5-15.4) g/dL Hct 35.0 L (35.3-44.9) % Plt Count 395 (140-400) K/mcL Neutrophils # 7.2 (1.6-8.9) K/mcL BMP 10/15/16 05:42 Sodium 137 Potassium 4.1 Chloride 102 Carbon Dioxide 26 BUN 13 Creatinine 0.76 Glucose 183 H Calcium 8.5 L Liver Function 10/15/16 Range/Units 05:42 Total Bilirubin 0.7 (0.2-1.2) mg/dL AST 17 (5-34) Units/L ALT 13 (0-55) Units/L Alkaline Phosphatase 143 H (38-126) Units/L Albumin 2.1 L (3.5-5.0) g/dL Consult Discharge Plan - Plan Referrals: Chetan Cabrera MD [Primary Care Provider] - 10/22/16 1:00 pm (Please follow up as schedule.. with the [employer] [place]) <Jerrod Valdes - Last Filed: 10/15/16 18:33> - Assessment and plan (1) Pneumonia Current Visit: Yes Status: Suspected Qualifiers: Pneumonia type: due to Pneumococcus Laterality: right Lung location: upper lobe of lung Qualified Code(s): J13 - Pneumonia due to Streptococcus pneumoniae (2) Streptococcus pneumoniae as the cause of diseases classified elsewhere Current Visit: Yes Status: Acute (3) Bacteremia due to Streptococcus pneumoniae Current Visit: Yes Status: Acute (4) Systolic heart failure Current Visit: Yes Status: Chronic Qualifiers: Heart failure chronicity: chronic Qualified Code(s): I50.22 - Chronic systolic (congestive) heart failure (5) CAD (coronary artery disease) Current Visit: Yes Status: Acute Qualifiers: Coronary Disease-Associated Artery/Lesion type: [place] artery [place] vs. 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6-8.9) K/mcL BMP 10/15/16 05:42 Sodium 137 Potassium 4.1 Chloride 102 Carbon Dioxide 26 BUN 13 Creatinine 0.76 Glucose 183 H Calcium 8.5 L Cardiac Enzymes 10/15/16 Range/Units 12:02 Troponin I 0.08 H* (0-0.03) ng/mL Liver Function 10/15/16 Range/Units 05:42 Total Bilirubin 0.7 (0.2-1.2) mg/dL AST 17 (5-34) Units/L ALT 13 (0-55) Units/L Alkaline Phosphatase 143 H (38-126) Units/L Albumin 2.1 L (3.5-5.0) g/dL - Attending Attestation I examined this patient and my medical decision-making was reviewed with the Resident Physician on 10/15/16. I agree with the documented findings, disposition and treatment plan as described except to the extent set forth below. Ms. Sinclair is currently admitted for pneumoccal bacteremia and pneumonia. She remains moderate to high risk due to potential for worsening infectious and respiratory symptoms. Ms. Sinclair feels OK today. She is still on IV abx. No cough. No dyspnea. Bowels OK. Appreciate cardiology evaluation. Exam Alert and pleasant Heart reg Lungs clear currently No edema I/P 1. Pneumococcal pneumonia and bacteremia - on IV abx 2. Chronic systolic CHF. Further diagnoses and plan as above.
[2016-10-15] MEDS ORDERED: *HR* OxyCODONE/APAP 10/325 TABLET PO PRN (12:14)
--- NOTE | 2016-10-15 12:20 | Cardiology Consult Note ---
Date of Encounter: 10/15/16 Time of Encounter: 12:13 Assessment and Plan (1) Cardiomyopathy Current Visit: Yes Status: Acute Echo resulted--EF reduced 35%, global hypokinesis. Mild diastolic dysfunction. Euvolemic on exam. Ischemic vs. Nonischemic. In setting of strep pneumonia bacteremia. In the setting of pt's bacteremia, do not recommend LHC during intpt stay. CMP may be secondary to the bacteremia. Multiple risk factors for CAD--HTN, HLD, DM, PVD, tobacco abuse. Pt already on ASA and Plavix for PVD. Start low dose BB and MANI-I. Check troponin. If not significantly elevated, medical management for now. Pt reports LHC many years ago at [facility] but per records, only cath report is from vascular. Recommend repeat echo as outpt to re-evaluate EF. If remains decreased, would recommend LHC at that time. Await troponin and if not significantly elevated, anticipate sign off once seen and evaluated by Dr. Chris Beach. Will schedule outpt follow-up in 2-3 weeks. Qualifiers: Cardiomyopathy type: unspecified Qualified Code(s): I42.9 - Cardiomyopathy , unspecified (2) Smoker Current Visit: Yes Status: Chronic Smoking cessation counseling given. Discussion w patient/family: The assessment and plan as outlined above was discussed with the patient and/or family members who expressed understanding and agreement. All questions were answered. Thank you for involving us in the care of your patient. Please call with any questions. I will discuss all the above with Dr. Chris Beach and make changes as necessary. History of Present Illness Consult date: 10/15/16 Requesting physician: Jerrod Valdes Consult reason: EF 35%, CMP Chief complaint: dyspnea History of present illness: Ms. Sinclair is a 61 year old female with PMH of diabetes, fibromyalgia, hyperlipidemia, hypertension, peripheral artery disease, chronic smoker presents with complaints of left upper shoulder pain, lethargy and weakness. She was a transfer from [facility] where she presented with saturation 88% on 2 L oxygen. Blood cultures grew streptococcal pneumonia CTA showed left upper lobe consolidation most likely pneumonia. Being treated with azithromycin and ceftriaxone. Echo obtained, shows EF reduced 35%, global dysfunction, mild diastolic dysfunction, mild MR, no obvious evidence of endocarditis. She denies chest pain or lower extremity edema. Chief complaint exertional dyspnea. Stress test 08/2013 Gated EF 65%, nuclear perfusion negative for ischemia or infarct. Reports prior cath here but only cath in records was for vascular. Past Med Surg Social Fam HX - Past Medical History Medical history: diabetes, fibromyalgia, hyperlipidemia, hypertension, peripheral artery disease Psychiatric history: no psych history - Past Surgical History Surgical History: hysterectomy, LE vascular intervention - Social History Smoking Status: Current every day smoker (1PPD) Packs per day: 1 Alcohol use: none Drug use: none - Family History Mother Living Status: Age at : 79 Cause of : heart failure Father Living Status: Age at : 82 Cause of : Cancer Medications and Allergies Albuterol Sulfate [Ventolin Hfa] 2 puff IH QID PRN 10/10/16 [History] Aspirin [Lo-Dose Aspirin EC] 81 mg PO DAILY 10/10/16 [History] Atorvastatin [Lipitor] 40 mg PO HS 10/10/16 [History] Clopidogrel Bisulfate [Plavix] 75 mg PO DAILY 10/10/16 [History] Cyclobenzaprine HCl [Cyclobenzaprine HCl] 5 - 10 mg PO HS 10/10/16 [History] Gabapentin [Neurontin] 100 mg PO HS 10/10/16 [History] Insulin ASPART [Novolog Flexpen] 10 unit SQ TIDWM 10/10/16 [History] Insulin Glargine [Lantus] 35 unit SQ BID 10/10/16 [History] Lidocaine Patch [Lidoderm 5% patch] 1 each TP DAILY PRN 10/10/16 [History] Liraglutide [Victoza 2-Trey] 1.2 mg SQ DAILY 10/10/16 [History] Naproxen [Naprosyn] 500 mg PO BID PRN 10/10/16 [History] Nitroglycerin [Nitrostat] 0.4 mg SL Q5M PRN 10/10/16 [History] Oxycodone HCl/Acetaminophen [Percocet 10-325 mg Tablet] 1 each PO Q8H PRN [History] Quetiapine Fumarate [Seroquel] 100 mg PO HS 10/10/16 [History] Sertraline [Zoloft] 50 - 100 mg PO DAILY 10/10/16 [History] Allergies codeine Allergy (Verified 10/10/16 10:02) See Comments All Systems Review: A 10-system review of systems was performed and is negative for pertinent findings except as documented above in the HPI. - Cardiovascular Cardiovascular: as per HPI, dyspnea at rest, dyspnea on exertion, palpitations - Respiratory Respiratory: dyspnea Physical Examination Vital Signs, Last 4 Hours Temp Pulse Resp BP Pulse Ox 10/15/16 11:54 16 97 10/15/16 11:31 98.4 F 104 16 117/76 93 L Vital Signs Temp Pulse Resp BP Pulse Ox 10/15/16 11:54 16 97 10/15/16 11:31 98.4 F 104 16 117/76 93 L 10/15/16 07:32 98.4 F 101 15 111/73 98 10/15/16 05:00 96 10/15/16 04:40 20 94 L 10/15/16 04:00 98.6 F 100 17 135/68 95 10/14/16 23:53 98.3 F 102 17 147/80 95 10/14/16 22:55 20 96 10/14/16 20:51 98.6 F 101 16 152/74 87 L 10/14/16 16:10 98.0 F 109 16 160/94 94 L Intake and Output 10/14/16 10/15/16 10/15/16 23:59 07:59 15:59 Intake Total 240 / 240 Balance 240 / 240 Intake: Oral 240 / 240 Other: Weight 81.5 kg Blood Glucose* 76 190 153 Patient Weight 10/15/16 23:59 Weight 81.5 kg General: Conversant, No Apparent Distress HEENT: Atraumatic, Normocephaly, Mucus Membranes Moist Neck: No JVD, Normal carotid pulses Cardiac: Reg Rate and Rhythm, Normal S1 and S2, No Murmur Lungs: Normal Breath Sounds, No Wheeze, Rales, Rhonchi Neuro: Alert and responsive, No focal deficits noted Abdomen: Soft, Non-Tender Skin: No rashes noted on visualized skin Musculoskeletal: No Chest Wall Tenderness Extremities: No Clubbing, No Cyanosis, No Edema, Normal Pulses Results 10/15/16 05:42 10/15/16 05:42 Lab Results 10/15/16 10/15/16 05:42 05:42 WBC 12.0 H Hgb 11.3 L Hct 35.0 L Plt Count 395 Sodium 137 Potassium 4.1 Chloride 102 Carbon Dioxide 26 BUN 13 Creatinine 0.76 Glucose 183 H Calcium 8.5 L Magnesium 1.6 Total Bilirubin 0.7 AST 17 ALT 13 Alkaline Phosphatase 143 H Short CBC 10/15/16 Range/Units 05:42 WBC 12.0 H (4.3-11.1) K/mcL Hgb 11.3 L (11.5-15.4) g/dL Hct 35.0 L (35.3-44.9) % Plt Count 395 (140-400) K/mcL Neutrophils # 7.2 (1.6-8.9) K/mcL BMP 10/15/16 Range/Units 05:42 Sodium 137 (136-145) mEq/L Potassium 4.1 (3.5-4.5) mEq/L Chloride 102 (98-109) mEq/L Carbon Dioxide 26 (19-29) mEq/L BUN 13 (7-20) mg/dL Creatinine 0.76 (0.57-1.11) mg/dL Glucose 183 H (70-99) mg/dL Calcium 8.5 L (8.6-10.8) mg/dL Liver Function 10/15/16 Range/Units 05:42 Total Bilirubin 0.7 (0.2-1.2) mg/dL AST 17 (5-34) Units/L ALT 13 (0-55) Units/L Alkaline Phosphatase 143 H (38-126) Units/L Albumin 2.1 L (3.5-5.0) g/dL Active Medications Albuterol Sulfate (Proventil Neb) 2.5 mg IH Q2H PRN PRN Reason: Shortness Of Breath/Wheezing Stop: 04/11/17 17:50 Albuterol/Ipratropium (Duoneb) 3 ml IH QIDR [facility] Stop: 04/11/17 18:01 Last Admin: 10/15/16 11:02 Dose: 3 ml Aspirin (Aspirin Ec) 81 mg PO DAILY [facility] Stop: 04/12/17 09:01 Last Admin: 10/15/16 07:51 Dose: 81 mg Atorvastatin Calcium (Lipitor) 40 mg PO HS [facility] Stop: 04/11/17 21:01 Last Admin: 10/14/16 22:04 Dose: 40 mg Clopidogrel Bisulfate (Plavix) 75 mg PO DAILY [facility] Stop: 04/12/17 09:01 Last Admin: 10/15/16 07:50 Dose: 75 mg Cyclobenzaprine HCl (Flexeril) 5 mg PO HS [facility] Stop: 04/11/17 23:51 Last Admin: 10/14/16 22:06 Dose: 5 mg Dextrose/Water (Dextrose 50% (Syg)) 25 ml IVP AD PRN PRN Reason: Hypoglycemia Stop: 04/11/17 17:57 Docusate Sodium (Colace) 100 mg PO BID PRN PRN Reason: Constipation Stop: 04/11/17 17:45 Enoxaparin Sodium (Lovenox) 40 mg SQ 0700 [facility] PRN Reason: Protocol Stop: 04/12/17 07:01 Last Admin: 10/15/16 07:50 Dose: 40 mg Gabapentin (Neurontin) 100 mg PO DAILY [facility] Stop: 04/12/17 09:01 Last Admin: 10/15/16 07:50 Dose: 100 mg Glucagon (Glucagen) 1 mg IM ONCE PRN PRN Reason: Hypoglycemia Stop: 04/11/17 17:57 Glucose (Gluctose) 15 gm PO ONCE PRN PRN Reason: Hypoglycemia Stop: 04/11/17 17:57 Glucose (Gluctose) 30 gm PO ONCE PRN PRN Reason: Hypoglycemia Stop: 04/11/17 17:57 Ceftriaxone Sodium 1,000 mg/ (Dextrose) 100 mls @ 200 mls/hr IVPB DAILY [facility] Stop: 04/12/17 09:01 Last Admin: 10/15/16 07:51 Dose: 200 mls/hr Dextrose (Dextrose 5%) 1,000 mls @ 100 mls/hr IV CONT PRN PRN Reason: HYPOGLYCEMIA Stop: 04/11/17 17:57 Insulin Detemir (Levemir) 20 unit 0.25 unit/kg (20 unit) SQ BID [facility] Stop: 04/11/17 21:01 Last Admin: 10/15/16 07:51 Dose: 20 unit Insulin Human Lispro (Humalog) 0 units SQ HS [facility] PRN Reason: Protocol Stop: 04/11/17 21:01 Last Admin: 10/15/16 04:42 Dose: Not Given Insulin Human Lispro (Humalog) 0 units SQ TIDAC [facility] PRN Reason: Protocol Stop: 04/11/17 18:01 Last Admin: 10/15/16 11:40 Dose: 4 units Insulin Human Lispro (Humalog) 6 units 0.08 units/kg (6 units) SQ TIDWM [facility] Stop: 04/12/17 12:01 Last Admin: 10/15/16 11:41 Dose: 6 units Lidocaine HCl (Lidoderm 5% Patch) 1 each TP DAILY [facility] Stop: 04/12/17 09:01 Last Admin: 10/15/16 07:51 Dose: 1 each Naloxone HCl (Narcan) 0.4 mg IVP Q2MIN PRN PRN Reason: Opioid Reversal Stop: 04/11/17 17:45 Nicotine (Nicoderm) 21 mg TD DAILY [facility] PRN Reason: Protocol Stop: 04/11/17 18:01 Last Admin: 10/15/16 07:50 Dose: 21 mg Nitroglycerin (Nitroglycerin) 0.4 mg SL Q5M PRN PRN Reason: Chest Pain Stop: 04/11/17 23:42 Oxycodone/Acetaminophen (Percocet 10/325) 1 each PO TID PRN PRN Reason: Pain Stop: 04/11/17 17:48 Quetiapine Fumarate (Seroquel) 100 mg PO HS [facility] Stop: 04/11/17 21:01 Last Admin: 10/14/16 22:06 Dose: 100 mg Sertraline HCl (Zoloft) 50 mg PO DAILY [facility] Stop: 04/12/17 09:01 Last Admin: 10/15/16 07:50 Dose: 50 mg - Imaging and Cardiology Echo: report reviewed (EF 35%, global LV systolic dysfunction, mild diastolic dysfunction, mild MR.) - EKG Interpretation EKG results cardiology: other (24 hour tele AVG HR 102, SR.) Consult Discharge Plan - Plan Referrals: Chetan Cabrera MD [Primary Care Provider] - 10/22/16 1:00 pm (Please follow up as schedule.. with the ROSIE Monique)
[2016-10-15] MEDS: Metoprolol XL (24 HR) Succ 25 MG TAB.ER.24H PO SCH (16:00)
[2016-10-16] MEDS: Ipratropium/Albuterol Neb 3 ML IH SCH ×4 (04:37→22:34)
[2016-10-16] MEDS: *HR* Enoxaparin 40 MG/0.4 ML SYRINGE SQ SCH (06:10)
[2016-10-16 06:50] LABS: Basophils % 0.4 %; Eosinophils # 0.3 K/mcL (0.0-0.6); Eosinophils % 2.9 %; Hemoglobin 10.3 g/dL (11.5-15.4); Immature Granulocytes % 1.5 % (0-4); Immature Platelets 1.2 % (1.1-6.1); Lymphocytes # 3.1 K/mcL (0.6-4.6); Lymphocytes % 28.2 %; Mean Corpuscular HGB Conc 33.2 g/dL (31.6-35.5); Mean Corpuscular Hemoglobin 28.9 pg (28.0-33.3); Mean Corpuscular Volume 86.8 fL (83.0-100.0); Mean Platelet Volume 8.8 fL (9.4-12.4); Monocytes # 0.8 K/mcL (0.0-1.3); Monocytes % 6.9 %; Neutrophils # 6.5 K/mcL (1.6-8.9); Platelet Count 396 K/mcL (140-400); Red Blood Count 3.57 M/mcL (3.82-4.97); Segmented Neutrophils % 60.1 %
[2016-10-16 07:07] LABS: BUN/Creatinine Ratio 22 (6-26); Blood Urea Nitrogen 15 mg/dL (7-20); Calcium 8.1 mg/dL (8.6-10.8); Carbon Dioxide 24 mEq/L (19-29); Chloride 102 mEq/L (98-109); Glucose 266 mg/dL (70-99); Osmolality,Calculated 286 (280-300); Potassium 4.3 mEq/L (3.5-4.5); Sodium 133 mEq/L (136-145); eGFR For African Americans > 60 (> 60); eGFR For Non-African Americans > 60 (> 60)
[2016-10-16] MEDS: Aspirin Enteric Coated 81 MG Tablet PO SCH (07:39)
[2016-10-16] MEDS: Insulin DETEMIR 100 UNIT/ML X5UNITS SQ SCH ×2 (07:39→21:30)
[2016-10-16] MEDS: Metoprolol XL (24 HR) Succ 25 MG TAB.ER.24H PO SCH (07:39)
[2016-10-16] MEDS: Nicotine 21 MG PATCH.TD24 TD SCH (07:39)
[2016-10-16] MEDS: Gabapentin 100 MG CAPSULE PO SCH (07:39)
[2016-10-16] MEDS: Insulin LISPRO 300 UNITS/3 ML VIAL SQ SCH ×7 (07:40→21:30)
[2016-10-16] MEDS ORDERED: Insulin DETEMIR 100 UNIT/ML X5UNITS SQ SCH (11:06)
--- NOTE | 2016-10-16 14:30 | Internal Med Progress Note ---
<Rojas Serrano - Last Filed: 10/16/16 14:28> Date of Encounter: 10/16/16 Time of Encounter: 08:15 - Assessment and plan (1) Community acquired pneumonia Current Visit: Yes Status: Acute Assessment and plan: Admitted with CAP and bacteremia. Blood culture Gram + bacteremia suseptable to Ceftriaxone. Patient improving clinically. Plan: - Complete a total of 7 days IV Ceftriaxone (day 6/7) - am labs. (2) Gram-positive bacteremia Current Visit: Yes Status: Acute Assessment and plan: Blood cultures positive for Strep pneumonia. Patient labs improved. afebrile and clinically improved. - Complete course of Ceftriaxone IV - Repeat blood cultures drawn with final results pending. (3) Systolic heart failure Current Visit: Yes Status: Chronic Assessment and plan: Patient underwent echocardiogram to evaluate for valvular vegetation and was found to have a EF of 35% with global hypokinesis. She denies hx of cardiac disease or heart failure. Risk factors: HTN, DM type II-uncontrolled, HLD, PAD, CAD MARIA ELENA score of 3 Plan: -Cardiology consulted 10/15/16 and have seen patient, medical management currently since patient has Gram + bacteremia. Follow up with cardiology. - Maximize medical therapy: Continue ASA, Plavix, ASA, Statin, Beta-kylie. Qualifiers: Heart failure chronicity: chronic Qualified Code(s): I50.22 - Chronic systolic (congestive) heart failure (4) CAD (coronary artery disease) Current Visit: Yes Status: Acute Assessment and plan: Patient has history of coronary artery disease and peripheral vascular disease. She denies any chest pain, leg cramps. Plan: - Continue ASA, Plavix, ASA, Statin, beta-kylie Qualifiers: Coronary Disease-Associated Artery/Lesion type: [place] artery [place] vs. transplanted heart: [place] heart Associated angina: without angina Qualified Code(s): I25.10 - Atherosclerotic heart disease of [place] coronary artery without angina pectoris (5) Type 2 diabetes mellitus Current Visit: Yes Status: Chronic Assessment and plan: Hyperglycemic today. Hemoglobin A1c is 9.5. Patient takes Victoza and insulin glargine and insulin support at home to control her diabetes. Plan: Increased Levemir 23 units twice a day. Continue insulin sliding scale medium dose. Continue diabetic diet Qualifiers: Diabetes mellitus complication status: with neurologic complications Diabetes mellitus complication detail: with polyneuropathy Diabetes mellitus fpc insulin use: with fpc use Qualified Code(s): E11.42 - Type 2 diabetes mellitus with diabetic polyneuropathy; Z79.4 - senior living (current) use of insulin (6) DVT prophylaxis Current Visit: Yes Status: Acute Assessment and plan: Continue Lovenox 40mg daily. - Subjective Interval history: Ms. Sinclair has been seen and evaluated at patient bedside this am. She is laying in bed resting this morning. She continues to deny any discomfort, fevers, chills, night sweats, nausea vomiting diarrhea or constipation. She has no other concerns or questions at this time. She understands she has one more day of IV ceftriaxone for her strep pneumonia bacteremia. - Constitutional Vitals: Temp Pulse Resp BP Pulse Ox 98.2 F 87 16 110/69 98 10/16/16 10:54 10/16/16 10:54 10/16/16 10:54 10/16/16 10:54 10/16/16 10:54 General appearance: Present: A&O X 3, no acute distress, answers questions appropriately - Head Head exam: Present: atraumatic, normocephalic - Eye Eye exam: Present: PERRL, conjuntiva pink, sclera anicteric Pupils: Present: PERRL - Neck Neck exam general surgery: Present: supple, trachea midline. Absent: lymphadenopathy - Respiratory Respiratory exam: Present: CTAB. Absent: accessory muscle use, rales, rhonchi, wheezes - Cardiovascular Cardiovascular exam: Present: RRR, +S1, +S2. Absent: diastolic murmur, gallop, rubs, systolic murmur - GI/Abdominal GI/Abdominal exam: Present: normal bowel sounds, soft, no peritoneal signs. Absent: distended, tenderness - Extremities Exam Extremities exam: Present: warm, radial pulses palpable and symetrical. Absent : calf tenderness, cyanotic, pedal edema - Neurological Exam Neurological exam: Present: CN II-XII intact, oriented X3, no focal deficits. Absent: pronater drift, facial droop, speech deficit Internal Medicine: Result - Labs CBC & Chem 7: 10/16/16 06:05 10/16/16 06:05 Labs: Short CBC 10/16/16 Range/Units 06:05 WBC 10.9 (4.3-11.1) K/mcL Hgb 10.3 L (11.5-15.4) g/dL Hct 31.0 L (35.3-44.9) % Plt Count 396 (140-400) K/mcL Neutrophils # 6.5 (1.6-8.9) K/mcL BMP 10/16/16 06:05 Sodium 133 L Potassium 4.3 Chloride 102 Carbon Dioxide 24 BUN 15 Creatinine 0.69 Glucose 266 H Calcium 8.1 L Consult Discharge Plan - Plan Referrals: Chetan Cabrera MD [Primary Care Provider] - 10/22/16 1:00 pm (Please follow up as schedule.. with the PROJECT D[employer]LLING ENGINEER Eneida) Jean Campbell CNP [Advanced Practice Nurse] - 11/06/16 1:30 pm <Jerrod Valdes - Last Filed: 10/16/16 15:06> - Assessment and plan (1) Pneumonia Current Visit: Yes Status: Suspected Qualifiers: Pneumonia type: due to Pneumococcus Laterality: right Lung location: upper lobe of lung Qualified Code(s): J13 - Pneumonia due to Streptococcus pneumoniae (2) Streptococcus pneumoniae as the cause of diseases classified elsewhere Current Visit: Yes Status: Acute (3) Bacteremia due to Streptococcus pneumoniae Current Visit: Yes Status: Acute (4) Systolic heart failure Current Visit: Yes Status: Chronic Qualifiers: Heart failure chronicity: chronic Qualified Code(s): I50.22 - Chronic systolic (congestive) heart failure (5) CAD (coronary artery disease) Current Visit: Yes Status: Acute Qualifiers: Coronary Disease-Associated Artery/Lesion type: [place] artery [place] vs. 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 insulin (7) Smoker Current Visit: Yes Status: Chronic - Constitutional Vitals: Temp Pulse Resp BP Pulse Ox 98.2 F 87 16 110/69 98 10/16/16 10:54 10/16/16 10:54 10/16/16 10:54 10/16/16 10:54 10/16/16 10:54 Internal Medicine: Result - Labs CBC & Chem 7: 10/16/16 06:05 10/16/16 06:05 Labs: Short CBC 10/16/16 Range/Units 06:05 WBC 10.9 (4.3-11.1) K/mcL Hgb 10.3 L (11.5-15.4) g/dL Hct 31.0 L (35.3-44.9) % Plt Count 396 (140-400) K/mcL Neutrophils # 6.5 (1.6-8.9) K/mcL BMP 10/16/16 06:05 Sodium 133 L Potassium 4.3 Chloride 102 Carbon Dioxide 24 BUN 15 Creatinine 0.69 Glucose 266 H Calcium 8.1 L - Attending Attestation I examined this patient and my medical decision-making was reviewed with the Resident Physician on 10/16/16. I agree with the documented findings, disposition and treatment plan as described except to the extent set forth below. Ms. Sinclair is currently admitted for pneumoccal bacteremia and pneumonia. She remains moderate risk due to potential for worsening infection and IV abx. Ms. Sinclair is feeling OK. She has been tolerating IV Ceftriaxone. No diarrhea. No fever or chills. She is day 6 of 7 of IV abx. Exam Alert. Comfortable No wheeze Heart reg No edema I/P 1. Acute pneumococcal pneumonia and bacteremia - completing course of IV Ceftriaxone. Has one more dose tomorrow. She will need follow up to assess for resolution of infiltrate. Repeat blood cx pending. 2. Acute systolic CHF - further cardiac evaluation outpatient after completes abx. 3. Smoker Further diagnoses and plan as above.
[2016-10-17] MEDS: Ipratropium/Albuterol Neb 3 ML IH SCH ×2 (04:19→10:38)
[2016-10-17] MEDS: *HR* Enoxaparin 40 MG/0.4 ML SYRINGE SQ SCH (06:09)
[2016-10-17 06:50] LABS: Basophils % 0.3 %; Eosinophils # 0.3 K/mcL (0.0-0.6); Eosinophils % 3.4 %; Hematocrit 31.5 % (35.3-44.9); Hemoglobin 10.2 g/dL (11.5-15.4); Immature Granulocytes % 1.2 % (0-4); Immature Platelets 1.3 % (1.1-6.1); Lymphocytes # 2.9 K/mcL (0.6-4.6); Lymphocytes % 32.2 %; Mean Corpuscular HGB Conc 32.4 g/dL (31.6-35.5); Mean Corpuscular Hemoglobin 28.7 pg (28.0-33.3); Mean Corpuscular Volume 88.5 fL (83.0-100.0); Mean Platelet Volume 8.6 fL (9.4-12.4); Monocytes # 0.7 K/mcL (0.0-1.3); Platelet Count 388 K/mcL (140-400); Red Blood Count 3.56 M/mcL (3.82-4.97); Segmented Neutrophils % 54.9 %
[2016-10-17 07:01] VITALS: BP 114/74
[2016-10-17 07:06] LABS: Alanine Aminotransferase 11 Units/L (0-55); Albumin 2.1 g/dL (3.5-5.0); Albumin/Globulin Ratio 0.4 (1.1-2.2); Alkaline Phosphatase 113 Units/L (38-126); Aspartate Amino Transferase 18 Units/L (5-34); BUN/Creatinine Ratio 18 (6-26); Bilirubin,Total 0.6 mg/dL (0.2-1.2); Blood Urea Nitrogen 13 mg/dL (7-20); Calcium 8.5 mg/dL (8.6-10.8); Carbon Dioxide 29 mEq/L (19-29); Chloride 104 mEq/L (98-109); Glucose 159 mg/dL (70-99); Osmolality,Calculated 285 (280-300); Potassium 4.4 mEq/L (3.5-4.5); Sodium 136 mEq/L (136-145); Total Protein 7.1 g/dL (6.0-8.3); eGFR For African Americans > 60 (> 60); eGFR For Non-African Americans > 60 (> 60)
--- NOTE | 2016-10-17 08:34 | Discharge Summary ---
<Rojas Serrano Donato - Last Filed: 10/18/16 17:01> Date of Encounter: 10/17/16 Time of Encounter: 08:27 - Discharge Diagnosis (1) Community acquired pneumonia Priority: Primary Status: Inactive (2) Gram-positive bacteremia Priority: Primary Status: Acute (3) Systolic heart failure Priority: Primary Status: Chronic Qualifiers: Heart failure chronicity: chronic Qualified Code(s): I50.22 - Chronic systolic (congestive) heart failure (4) CAD (coronary artery disease) Priority: Secondary Status: Acute Qualifiers: Coronary Disease-Associated Artery/Lesion type: hoh artery [place] vs. transplanted heart: hoh heart Associated angina: without angina Qualified Code(s): I25.10 - Atherosclerotic heart disease of hoh coronary artery without angina pectoris (5) Type 2 diabetes mellitus Priority: Secondary Status: Chronic Qualifiers: Diabetes mellitus complication status: with neurologic complications Diabetes mellitus complication detail: with polyneuropathy Diabetes mellitus adjunct faculty for medical terminology insulin use: with adjunct faculty for medical terminology use Qualified Code(s): E11.42 - Type 2 diabetes mellitus with diabetic polyneuropathy; Z79.4 - FDC (current) use of insulin (6) DVT prophylaxis Priority: Secondary Status: Acute - Discharge Medications Prescriptions: Lisinopril 2.5 mg PO DAILY #30 tablet Metoprolol XL (24 HR) Succ [Toprol Xl] 12.5 mg PO DAILY #30 tab.er.24h Home Medications: Albuterol Sulfate [Ventolin Hfa] 2 puff IH QID PRN 10/10/16 [History] Aspirin [Lo-Dose Aspirin EC] 81 mg PO DAILY 10/10/16 [History] Atorvastatin [Lipitor] 40 mg PO HS 10/10/16 [History] Clopidogrel Bisulfate [Plavix] 75 mg PO DAILY 10/10/16 [History] Cyclobenzaprine HCl 5 - 10 mg PO HS 10/10/16 [History] Gabapentin [Neurontin] 100 mg PO HS 10/10/16 [History] Insulin ASPART [Novolog Flexpen] 10 unit SQ TIDWM 10/10/16 [History] Insulin Glargine [Lantus] 35 unit SQ BID 10/10/16 [History] Lidocaine Patch [Lidoderm 5% patch] 1 each TP DAILY PRN 10/10/16 [History] Liraglutide [Victoza 2-Trey] 1.2 mg SQ DAILY 10/10/16 [History] Naproxen [Naprosyn] 500 mg PO BID PRN 10/10/16 [History] Nitroglycerin [Nitrostat] 0.4 mg SL Q5M PRN 10/10/16 [History] Oxycodone HCl/Acetaminophen [Percocet 10-325 mg Tablet] 1 each PO Q8H PRN [History] Quetiapine Fumarate [Seroquel] 100 mg PO HS 10/10/16 [History] Sertraline [Zoloft] 50 - 100 mg PO DAILY 10/10/16 [History] Lisinopril 2.5 mg PO DAILY #30 tablet 10/17/16 [Rx] Metoprolol XL (24 HR) Succ [Toprol Xl] 12.5 mg PO DAILY #30 tab.er.24h 10/17/16 [Rx] Allergies/Adverse Reactions: Allergies codeine Allergy (Verified 10/10/16 10:02) See Comments Procedures/tests Complete & Pending: Procedures Performed prior 72 hours Category Date Time Status EV echocardiogram w enhance Routine Y 10/14/16 13:38 Completed Date of admission: 10/12/16 15:13 Primary care physician: Chetan Cabrera MD Discharging clinician: Rojas Serrano Anticipated date of discharge: 10/17/16 - Patient Status Disposition: Home, Self-Care Condition: Good Functional capacity at discharge: independent ambulation Overall status at discharge: patient is progressing back to baseline - Discharge Instructions Instructions: Dehydration (DC), Diabetes Mellitus Type 2 in Adults (DC), Pneumonia (DC) Follow Up With: Chetan Cabrera MD [Primary Care Provider] - 10/22/16 1:00 pm (Please follow up as schedule.. with the ROSIE Monique) Jean Campbell CNP [Advanced Practice Nurse] - 11/06/16 1:30 pm Additional Instructions: Recommend follow up with your PCP within the next 3-5 days. Follow up with cardiology outpatient as scheduled in the next 2-3 weeks. Adhere to a diabetic diet. Take medications as prescribed. - Diet and Activity Activity: increase activity as tolerated Diet: diabetic diet Interval History: Ms. Sinclair is a 61 year old female with hypertension, hyperlipidemia, type 2 diabetes, fibromyalgia, peripheral vascular disease who is admitted in a transfer from [place] emergency room with pneumonia. She presented to her primary care provider that morning with these complaints and he sent her to the emergency room. Presentation to [place] emergency room she was satting 88% on 2 L. Evaluation was significant for white blood cell count of 25, hypokalemia with potassium of 3.3, hyponatremia with sodium of 131. CTA of the chest was performed which showed a left upper lobe infiltrate consistent with pneumonia and several nodules. Blood cultures were collected and patient was admitted to general medical floor and started on azithromycin and ceftriaxone IV. Oxygen was titrated to maintain oxygen saturations rate are than 90%. She is provided potassium 40 IV for hypokalemia and labs were ordered for the a.m. Blood cultures resulted positive for Streptococcus pneumonia. She was continued on IV ceftriaxone and azithromycin and remained stable with improvement in her clinical condition. On 10/13/2016 azithromycin was discontinued and she was continued on ceftriaxone for a total of 7 days. Echocardiogram performed 2016 demonstrated LVEF 35% with normal left ventricular size and wall thickness. Global left ventricular systolic dysfunction. Mild left ventricle diastolic dysfunction. Cardiology was consult for new systolic heart failure. Cardiology evaluated the patient on 10/15/2016 and Recommend repeat echo as outpt to re-evaluate EF. If remains decreased, would recommend C at that time. She remained stable throughout her inpatient stay and completed IV ceftriaxone treatment on 10/17/2016. She is continued on home medications and placed in inpatient sliding scale for control of her type 2 diabetes. On 2016 she was evaluated outpatient bedside and deemed stable for discharge home. She is to follow-up with her primary care physician and follow-up with cardiology outpatient in 2-3 weeks. Hospital course: Ms. Sinclair is a 61 year old female - Time Spent with Patient Total time spent providing and/or coordinating discharge services: - Constitutional Vitals: Temp Pulse Resp BP Pulse Ox 98.9 F 106 16 114/74 96 10/17/16 07:00 10/17/16 07:00 10/17/16 07:00 10/17/16 07:00 10/17/16 07:00 General appearance: Present: A&O X 3, no acute distress, answers questions appropriately - Head Head exam: Present: atraumatic, normocephalic - Eye Eye exam: Present: PERRL, conjuntiva pink, sclera anicteric Pupils: Present: PERRL - Neck Neck exam general surgery: Present: supple, trachea midline. Absent: lymphadenopathy - Respiratory Respiratory exam: Present: CTAB. Absent: accessory muscle use, rales, rhonchi, wheezes - Cardiovascular Cardiovascular exam: Present: RRR, +S1, +S2. Absent: diastolic murmur, gallop, rubs, systolic murmur - GI/Abdominal GI/Abdominal exam: Present: normal bowel sounds, soft, no peritoneal signs. Absent: distended, tenderness - Extremities Exam Extremities exam: Present: warm, radial pulses palpable and symetrical. Absent : calf tenderness, cyanotic, pedal edema - Neurological Exam Neurological exam: Present: alert, oriented X3, no focal deficits. Absent: pronater drift, facial droop, speech deficit <Jerrod Valdes - Last Filed: 10/20/16 15:33> - Discharge Diagnosis (1) Pneumonia Status: Suspected Qualifiers: Pneumonia type: due to Pneumococcus Laterality: right Lung location: upper lobe of lung Qualified Code(s): J13 - Pneumonia due to Streptococcus pneumoniae (2) Streptococcus pneumoniae as the cause of diseases classified elsewhere Status: Acute (3) Bacteremia due to Streptococcus pneumoniae Status: Acute (4) Systolic heart failure Status: Chronic Qualifiers: Heart failure chronicity: chronic Qualified Code(s): I50.22 - Chronic systolic (congestive) heart failure (5) CAD (coronary artery disease) Status: Acute Qualifiers: Coronary Disease-Associated Artery/Lesion type: hoh artery [place] vs. transplanted heart: hoh heart Associated angina: without angina Qualified Code(s): I25.10 - Atherosclerotic heart disease of hoh coronary artery without angina pectoris (6) Type 2 diabetes mellitus Status: Chronic Qualifiers: Diabetes mellitus complication status: with neurologic complications Diabetes mellitus complication detail: with polyneuropathy Diabetes mellitus adjunct faculty for medical terminology insulin use: with adjunct faculty for medical terminology use Qualified Code(s): E11.42 - Type 2 diabetes mellitus with diabetic polyneuropathy; Z79.4 - FDC (current) use of insulin (7) Smoker Status: Chronic Date of admission: 10/12/16 15:13 Primary care physician: Chetan Cabrera MD Hospital course: Ms. Sinclair is a 61 year old female - Time Spent with Patient Total time spent providing and/or coordinating discharge services: - Constitutional Vitals: Temp Pulse Resp BP Pulse Ox 98.9 F 106 18 114/74 97 10/17/16 07:00 10/17/16 07:00 10/17/16 10:38 10/17/16 07:00 10/17/16 10:38 - Attending Attestation I examined this patient and my medical decision-making was reviewed with the Resident Physician on 10/17/16. I agree with the documented findings, disposition and treatment plan as described except to the extent set forth below. Ms. Sinclair feels well today. She has completed her IV Ceftriaxone. No fever. Vitals stable Exam Alert. Comfortable Heart reg Lungs clear Plan D/C home today Follow up CT scan for resolution. Pt is aware of need to follow up for CT as well as with cardiology.
[2016-10-17] MEDS ORDERED: FLU VACC QS2016-17 36MOS UP/PF 0.5 ML SYRINGE IM ONE (08:59)
[2016-10-17] MEDS: Aspirin Enteric Coated 81 MG Tablet PO SCH (09:31)
[2016-10-17] MEDS: Metoprolol XL (24 HR) Succ 25 MG TAB.ER.24H PO SCH (09:31)
[2016-10-17] MEDS: Gabapentin 100 MG CAPSULE PO SCH (09:31)
[2016-10-17] MEDS: Nicotine 21 MG PATCH.TD24 TD SCH (09:32)
[2016-10-17] MEDS: Insulin DETEMIR 100 UNIT/ML X5UNITS SQ SCH (09:34)
[2016-10-17] MEDS: Insulin LISPRO 300 UNITS/3 ML VIAL SQ SCH ×2 (09:43)
== END 2016-10-17 10:56 | disposition home or self-care (01) | DRG 193 ==
LOC: 2ANU → SUATTDRO 15:39 → 2ANU 18:17 → SUATTDRO 10-12 15:13
PROVIDERS: ADMIT Internal Medicine; ATTEND Internal Medicine

== ENCOUNTER 2022-01-01 07:02 | Inpatient (IN) ==
[2022-01-01] MEDS ORDERED: *HR* FentaNYL (PF) 100 MCG/2 ML VIAL ONE (07:13)
[2022-01-01] MEDS ORDERED: *HR* Propofol 200 MG/20 ML VIAL IVP ONE (07:13)
[2022-01-01] MEDS ORDERED: *HR* Phenylephrine 10 MG/ML VIAL ONE (07:20)
[2022-01-01] MEDS ORDERED: Protamine Sulfate 50 MG/5 ML VIAL IVP ONE (07:21)
[2022-01-01] MEDS ORDERED: Bupivacaine-MPF 0.25% 10 ML VIAL ONE (07:21)
[2022-01-01] MEDS ORDERED: Heparin 1,000 UNITS/500 mL 500 ML ONE (07:22)
[2022-01-01] MEDS ORDERED: Ondansetron 4 MG/2 ML VIAL ONE (07:26)
[2022-01-01] MEDS ORDERED: *HR* Rocuronium Bromide 50 MG/5 ML VIAL ONE (07:26)
[2022-01-01] MEDS ORDERED: Lidocaine HCL 4 ML Topical Solution (Laryng-O-Jet Kit Sterile Pak) TP ONE (07:26)
[2022-01-01] MEDS ORDERED: Lidocaine -MPF 2% 2 ML VIAL ONE (07:26)
[2022-01-01] MEDS ORDERED: CeFAZolin Syr 2,000MG/20 ML 2,000 MG/20 ML SYRINGE IVPB ONE (07:29)
[2022-01-01] MEDS ORDERED: Ringers Solution, Lactated 1,000 ML IVC SCH (07:30)
[2022-01-01] MEDS ORDERED: Vancomycin 1,000 MG, Sodium Chloride IRRigation 1,000 ML IR ONE (07:45)
[2022-01-01] MEDS ORDERED: *HR* OxyCODONE Immed Rel 5 MG TABLET PO PRN (07:50)
[2022-01-01] MEDS ORDERED: Ondansetron 4 MG/2 ML VIAL IVP PRN ×2 (07:50→14:22)
[2022-01-01] MEDS ORDERED: *HR* Labetalol 20 MG/4 ML SYRINGE IVP ONE ×2 (08:57→11:30)
[2022-01-01] MEDS ORDERED: *HR* Heparin 5,000 UNIT/ML VIAL ONE (09:03)
[2022-01-01] MEDS ORDERED: *HR* HYDROMORPHONE 2 MG/ML VIAL ONE (09:31)
[2022-01-01] MEDS ORDERED: Sugammadex Sodium 200 MG/2 ML VIAL IV ONE (10:54)
[2022-01-01] MEDS ORDERED: Insulin Regular, Human 100 UNIT/ML SUBQ ONE (11:11)
[2022-01-01] MEDS: *HR* Labetalol 20 MG/4 ML SYRINGE IVP PRN ×3 (11:31→12:18)
[2022-01-01] MEDS: *HR* HYDROmorphone PF 0.5 MG/0.5 ML SYRINGE IVP PRN ×3 (11:33→12:20)
[2022-01-01] MEDS ORDERED: Insulin LISPRO 300 UNITS/3 ML VIAL SUBQ STA (11:59)
[2022-01-01] MEDS ORDERED: D5% in Water 1,000 ML IVC PRN (14:22)
[2022-01-01] MEDS ORDERED: *HR* Dextrose 50 % in Water (Syg) 50 ML SYRINGE IVP PRN (14:22)
[2022-01-01] MEDS ORDERED: Nitroglycerin 0.4 MG TAB.SUBL SL PRN (14:22)
[2022-01-01] MEDS ORDERED: Acetaminophen 325 MG TABLET PO PRN (14:22)
[2022-01-01] MEDS ORDERED: *HR* Labetalol 20 MG/4 ML SYRINGE IVP PRN (14:22)
[2022-01-01] MEDS ORDERED: Dextrose Gel 15 GM/37.5 ML TUBE PO PRN ×2 (14:22)
[2022-01-01] MEDS ORDERED: 0.9 % Sodium Chloride 1,000 ML IVC SCH (14:22)
[2022-01-01] MEDS ORDERED: Naloxone 0.4 MG/ML INJ IVP PRN (14:22)
[2022-01-01] MEDS: *HR* HYDROcodone/Acet 5/325 mg TABLET PO PRN ×2 (14:55→23:21)
[2022-01-01] MEDS: Insulin LISPRO 300 UNITS/3 ML VIAL SUBQ SCH ×2 (14:59→17:45)
[2022-01-01] MEDS: *HR* Metoprolol 5 MG/5 ML VIAL IVP SCH ×3 (15:12→23:21)
[2022-01-01] MEDS: CeFAZolin 2 GM/120 ML BAG IVPB SCH ×2 (16:03→23:20)
[2022-01-01] MEDS: *HR* OxyCODONE Immed Rel 5 MG TABLET PO PRN (17:50)
[2022-01-01] MEDS: Budesonide/Formoterol 80/4.5 1 PUFF INH IH SCH (20:38)
[2022-01-01] MEDS ORDERED: QUEtiapine Fumarate 100 MG TABLET PO SCH (21:00)
[2022-01-01] MEDS ORDERED: Insulin LISPRO 300 UNITS/3 ML VIAL SUBQ SCH (21:00)
[2022-01-01] MEDS: Ascorbic Acid 500 MG TABLET PO SCH (22:22)
[2022-01-02 04:20] LABS: Basophils % 0.2 %; Hematocrit 30.2 % (35.3-44.9); Immature Granulocytes % 0.2 % (0-4); Lymphocytes # 2.2 K/mcL (0.6-4.6); Lymphocytes % 27.8 %; Mean Corpuscular HGB Conc 35.4 g/dL (31.6-35.5); Mean Corpuscular Hemoglobin 31.7 pg (28.0-33.3); Mean Corpuscular Volume 89.3 fL (83.0-100.0); Mean Platelet Volume 9.8 fL (9.4-12.4); Monocytes # 0.7 K/mcL (0.0-1.3); Monocytes % 8.2 %; Neutrophils # 5.1 K/mcL (1.6-8.9); Platelet Count 144 K/mcL (140-400); Red Blood Count 3.38 M/mcL (3.82-4.97); Red Cell Distribution Width 12.5 % (11.5-14.5); Segmented Neutrophils % 63.6 %
[2022-01-02 04:24] LABS: Hemoglobin 10.7 g/dL (11.5-15.4)
[2022-01-02 04:32] LABS: BUN/Creatinine Ratio 15 (6-26); Blood Urea Nitrogen 9 mg/dL (8-23); Calcium 8.5 mg/dL (8.6-10.3); Carbon Dioxide 29 mEq/L (23-29); Chloride 105 mEq/L (98-107); Glucose 123 mg/dL (70-105); Osmolality,Calculated 286 (280-300); Potassium 3.6 mEq/L (3.5-5.1); Sodium 138 mEq/L (136-145); eGFR For African Americans > 60 (> 60); eGFR For Non-African Americans > 60 (> 60)
[2022-01-02] MEDS: *HR* OxyCODONE Immed Rel 5 MG TABLET PO PRN ×2 (05:49→12:37)
[2022-01-02] MEDS: *HR* Metoprolol 5 MG/5 ML VIAL IVP SCH ×2 (05:51→12:35)
[2022-01-02] MEDS ORDERED: *HR* Heparin 5,000 UNIT/ML VIAL SQ SCH ×2 (06:00)
[2022-01-02] MEDS: Insulin LISPRO 300 UNITS/3 ML VIAL SUBQ SCH ×2 (08:09→12:38)
[2022-01-02] MEDS: Ascorbic Acid 500 MG TABLET PO SCH (08:20)
[2022-01-02] MEDS ORDERED: Isosorbide MONOnitrate (24 HR) 30 MG TAB.ER.24H PO SCH (09:00)
[2022-01-02] MEDS ORDERED: Metoprolol XL (24 HR) Succ 50 MG TAB.ER.24H PO SCH (09:00)
[2022-01-02 10:08] VITALS: BP 159/61; PULSE 85; TEMP 98.7
[2022-01-02] MEDS: Budesonide/Formoterol 80/4.5 1 PUFF INH IH SCH (10:33)
[2022-01-02 10:39] VITALS: O2SAT 100
== END 2022-01-02 14:56 | disposition home or self-care (01) | DRG 254 ==
LOC: SAMDAY 07:02 → 2NNU 13:04
PROVIDERS: ADMIT Surgery; ATTEND Surgery